=== PATIENT | male | born 1990 | race Caucasian/White ===

== ENCOUNTER 2024-04-10 14:34 | Outpatient (OUT) | payer OTHER, SELFPAY | END 2024-04-10 14:35 | disposition home or self-care (01) | LOC: PST 14:35 | PROVIDERS: Family Provider Family Medicine; Visit Provider Surgery | DX: Z01.818 Encounter for other preprocedural examination (principal); K21.9 Gastro-esophageal reflux disease without esophagitis ==

== ENCOUNTER 2024-04-18 08:20 | Day surgery (SDC) | payer OTHER, SELFPAY ==
--- NOTE | 2024-04-18 | OP_ITS ---
OPERATION DATE: 04/18/2024 PREOPERATIVE DIAGNOSIS: Gastroesophageal reflux disease, globus sensation. POSTOPERATIVE DIAGNOSIS: Mild antral gastritis. PROCEDURE: EGD with antral biopsy. SURGEON: Trell Aragon M.D. ANESTHESIA: Monitored anesthesia care. ESTIMATED BLOOD LOSS: Less than 1 mL. INDICATIONS AND CONSENT: Patient is a 33-year-old male with history of refractory gastroesophageal reflux disease, despite proton pump inhibitor. Primary symptom is a globus sensation. Indications, risks, benefits, alternatives of proceeding with EGD under anesthesia were explained extensively to the patient, including the risks of bleeding, aspiration, esophageal/gastric/duodenal perforation or anesthetic complications. All of his questions were answered. Informed consent was obtained. PROCEDURE: Patient brought to the operating room, placed in the left lateral decubitus position. Monitored anesthesia care was provided. Bite block was placed in the patient?s mouth. Scope was inserted into the oropharynx. Under direct visualization, it was advanced into the esophagus, past the cricopharyngeus, down to the stomach. The stomach was insufflated with air. The pylorus was traversed down to the descending portion of the duodenum. There was no evidence of duodenitis or ulceration. There was no scarring within the pyloric channel. Scope was pulled back into the stomach and retroflexed. There was no hiatal hernia. There was some mild antral gastritis without ulceration or bleeding. Biopsy was obtained with cold biopsy forceps with good hemostasis. The GE junction was noted at approximately 40 cm. There was no distal esophagitis or Maier?s changes. The remainder of the esophagus was unremarkable. The scope was then withdrawn. Patient tolerated procedure well, was sent to recovery room in good condition. CC: Shaun Lopez M.D. [facility]ITAL[facility]aged
--- OUTSIDE RECORDS SUMMARY | 2024-04-18 08:24 | XMS_ITS | CCD ---
Author Organization [facility] Care Team Providers Care Collet Making Machine Operator Name Role Phone REBEL CAZARES Attending Unavailable REBEL CAZARES Referring Unavailable Shaun Lopez Primary Care Physician [phone] Trell JARQUIN Attending Unavailable Shaun Lopez Referring Unavailable Allergies Allergy Classification Reported Allergen(s) Allergy Type Date of Onset Reaction(s) Facility (2 sources) Penicillin; Translations: [penicillin] Drug Allergy Eruption of skin (disorder) [facility] [place] Medications Current Medications Medication Drug Class(es) Dates Sig (Normalized) Sig (Original) pantoprazole 40 mg delayed release oral tablet (1 source) Proton Pump Inhibitor Start: 03-21-2024 take 1 tablet by mouth once daily Protonix 40 mg Tab-DR 40 mg = 1 tab(s), Oral, Daily, Refills(s) 0 Start Date: 03/21/24 Status: Ordered Problems Active Problems Problem Classification Problem Date Documented Date Episodic/Chronic Esophageal disorders (3 sources) Gastroesophageal reflux disease without esophagitis; Translations: [Gastro-esophageal reflux disease without esophagitis] Onset: 03-28-2024 Chronic Other circulatory disease (1 source) Feeling of lump in throat 03-28-2024 Episodic Other nutritional; endocrine; and metabolic disorders (1 source) Body mass index 30+ - obesity 03-28-2024 Chronic Other nutritional; endocrine; and metabolic disorders (1 source) Obesity caused by energy imbalance 03-21-2024 Chronic Past or Other Problems Problem Classification Problem Date Documented Da te Episodic/Chronic Unclassified (1 source) Foreign body sensation; Translations: [Foreign body sensation, throat] Onset: 03-28-2024 Results Test Name Value Interpretation Reference Range Facil ity Ambulatory Visit Summaryon 0 03-28-2024 Ambulatory Visit Summary Ambulatory Visit Summary KIRSTY MORTENSEN :1990 Visit Date:03/28/2024 Ambulatory Visit Instructions Your Care Team Attending Physician - Trell JARQUIN MD Primary Care Physician - Shaun Lopez MD Referring Physician - Shaun Lopez MD This Is Your Medications List Contact prescribing physician if questions or concerns pantoprazole (Protonix 40 mg Tab-DR) Procedures Performed None. Discharge Vitals Heart Rate (Peripheral) 72 Respiratory Rate 16 Blood Pressure 112/82 Height 167.64 cm Height 66 in Weight 88 kg Weight 194.007 lb BMI 31.31 Medications What How Much When Instructions Unchanged pantoprazole (Protonix 40 mg Tab-DR) 1 Tablets By Mouth Every day Contact prescribing physician if questions or concerns Allergies penicillin (Rash) Problems Ongoing - Any problem that you are currently receiving treatment for. BMI 31.0-31.9,adult GERD (gastroesophageal reflux disease) Obesity due to excess calories Patient Survey You may receive a survey via text or e-mail asking about your office visit. Please share your experience with us by completing your survey. We appreciate your feedback and thank you for choosing us for your care. Normal [facility] XR CHEST 2 VIEWSon XR CHEST 2 VIEWS EXAM: XR CHEST 2 VIE WS DATE:05/15/2023 11:50 AM CLINICAL HISTORY: cough. COMPARISON: None available. TECHNIQUE: Upright PA and lateral radiographs of the chest were obtained. FINDINGS: There is no significant pulmonary infiltrate, cardiomegaly, pleural effusion, vascular congestion, pneumothorax, or displaced fractures identified. IMPRESSION: NO EVIDENCE OF ACTIVE CARDIOPULMONARY DISEASE. ELECTRONICALLY SIGNED BY: Paulo Callaway MD Normal Not Available Vital Signs Date Time Vital Sign Value Performing Clinician Marily elizabeth 03-28-2024 14:18-0500 Blood Pressure Location Trell JARQUIN [facility] [place] 03-28-2024 14:18-0500 Diastolic blood pressure 82 mm[Hg] Trell JARQUIN [facility] [place] 03-28-2024 14:18-0500 Heart rate 72 /min Trell JARQUIN [facility] [place] 03-28-2024 14:18-0500 Respiratory rate 16 /min Trell NILL [facility] [place] 03-28-2024 14:18-0500 Systolic blood pressure 112 mm[Hg] Trell NILL [facility] Encounters Encounter Date Encounter Type Care Provider Facility Start: 03-28-2024 End: 03-28-2024 ambulatory Trell R NILL Facility:[facility] Start: 03-28-2024 End: 03-28-2024 Patient encounter procedure Trell Arndt NILL [facility] Start: 03-19-2024 ambulatory Trell NILL Facility:[facility] [place] Start: 05-15-2023 End: 05-16-2023 ambulatory REBEL CAZARES Not Available Procedures Date Procedure Procedure Detail Performing Clinician None (qualifier value) Mauricio DUVALL Immunizations Immunization Date Immunization Notes Care Provider Fa cility 03-20-2021 SARS-CoV-2 (COVID-19 ) mRNA BNT-162b2 vax Trell NILL [facility] 07-09-2020 SARS-CoV-2 (COVID-19 ) mRNA BNT-162b2 vax Trell NILL [facility] Comment on above: Result Comment: 2024: [facility] 06-18-2020 SARS-CoV-2 (COVID-19 ) mRNA BNT-162b2 vax Trell NILL [facility] Comment on above: Result Comment: 2024: [facility] Payers Date Payer Category Payer Unknown [id number] 2023 Unknown [id number] 1990 Unknown [id number] 1990 Unknown [id number] 1990 Unknown [id number] Social History Date Type Detail Facility Start: 03-28-2024 Tobacco smoking status Never s moked tobacco (finding) [facility] [place] Tobacco smoking status Never Dominic[facility] [place] Sex Assigned At Male [facility] Functional Status Date Assessment Result Facility 03-28-2024 Functional Status N/A [facility] [place] Clinical Note 03-28-2024 Note Date & Type Note Facility 03-28-2024 Note General Surgery Offi ce/Clinic Note Chief Complaint consultation for GERD HPI Staff 33 year old male presents on consultation from Dr. Lopez for possible GERD. Patient reports feeling of sensation of food being stuck in throat. He has been experiencing this intermittently since February. Sensation is not related to eating. He denies swallowing issues or choking on food. Denies sour taste in mouth or indigestion. No nausea or vomiting. Taking Protonix 40mg daily since February. He does not feel this has significantly changed this sensation but has improved heartburn. Never had EGD in the past. History of Present Illness 33 yo male with 1 year h/o GERD symptoms, worsening over last 6 weeks; placed on Protonix last month with improvement in some symptoms, primarily burning epigastric pain radiating into chest; has noted increased globus sensation; no dysphagia or early satiety, no odynophagia; no asa use, occasional NSAID use; no tobacco use; no abd operations or previous endoscopy; no fmhx of GI malignancy or IBD. Review of Systems PHQ Score Initial Depression Screen Score: 0 SCORE ROS - Provider Constitutional: no fever, no sweats, no weight loss. Eyes: no glasses, no blurred vision, no visual loss. ENMT: no dentures, no hoarseness, no swallowing difficulties, no hearing loss, no ear infection(s), no nose bleeds. Cardiovascular: normal blood pressure, no chest pain, regular heartbeat, no heart murmur. Respiratory: no shortness of breath, no cough, no asthma, no wheezing. Gastrointestinal: no nausea, no vomiting, no diarrhea, no constipation, no blood in stool, no change in bowel habits, no abdominal pain, no hepatitis. Genitourinary: no kidney stones, no urine infection, no dysuria. Musculoskeletal: no pain, no weakness. Skin: no changing moles, no rash, no skin lumps. Neurologic: no seizures, no epilepsy, no headache. Psychiatric: no emotional or psychiatric problem. Heme/Lymph: no bleeding problems, no anemia, no blood clots, no transfusions. Allergy/Immunologic: no swollen lymph nodes/glands, no IV drug abuse. Other: Additional ROS info: Except as noted in the above Review of Systems and in the History of Present Illness, all other systems have been reviewed and are negative or noncontributory. Physical Exam Vitals & Measurements HR: 72(Peripheral) RR: 16 BP: 112/82 HT: 66 in HT: 167.64 cm WT: 88 kg WT: 194.007 lb BMI: 31.31 HEENT: normal conjunctiva, sclera clear, no scleral icterus, EOM intact, PERRLA, oral mucosa moist without lesions. Neck: trachea midline, no mass, symmetric, no thyromegaly or nodules, no adenopathy Respiratory: lungs CTA, respirations non labored. Cardiovascular: regular rate and rhythm, no murmur, no pedal edema or varicosities. Gastrointestinal: soft, non distended, no tenderness, no masses, no palpable hernias, diastasis recti no, no hepatosplenomegaly; normal bs Lymphatic: no cervical adenopathy, no supraclavicular adenopathy. Musculoskeletal: normal gait, digits and nails without infection, nodes, cyanosis, clubbing. Skin: no rashes, no lesions, no ulcers, no subcutaneous nodules, induration. Psychiatric/Neuro: oriented to time, place, person, judgement normal, affect appropriate for age, insight intact, no focal deficits. Tests: , review of old records completed , Discussed surgical options, risks, and possible complications with patient. Assessment/Plan 1. Chronic GERD (K21.9: Gastro-esophageal reflux disease without esophagitis) plan EGD under anesthesia for further evaluation, informed consent obtained. 2. Globus sensation (R09.A2: Foreign body sensation, throat) see # 1 Follow-up No qualifying data available Problem List/Past Medical History Ongoing BMI 31.0-31.9,adult Chronic GERD GERD (gastroesophageal reflux disease) Globus sensation Obesity due to excess calories Historical No qualifying data Procedure/Surgical History None. Medications Protonix 40 mg Tab-DR, 40 mg= 1 tab(s), Oral, Daily Allergies penicillin (Rash) Social History Alcohol Never., 03/28/2024 Substance Abuse Never., 03/28/2024 Tobacco Never (less than 100 in lifetime) Tobacco Use:. Never Smokeless Tobacco Use:., 03/28/2024 Family History Heart disease: Father. Immunizations Vaccine Date Status Comments SARS-CoV-2 (COVID-19) mRNA BNT-162b2 vax 03/20/2021 Recorded SARS-CoV-2 (COVID-19) mRNA BNT-162b2 vax 07/09/2020 Recorded 2024-03-19: [facility] SARS-CoV-2 (COVID-19) mRNA BNT-162b2 vax 06/18/2020 Recorded 2024-03-19: [facility] Comment on above: Result Comment: Elec tronically Signed By: MILKA NASH, Trell Epperson\Date and Time Signed: 03/28/24 14:54 EST Evaluation + Plan note Note Date & Type Note Facility Evaluation + Plan note No data available for this section [facility] [place] [facility] Discharge instructions Note Date & Type Note Facility Hospital Discharge instructions No data available for this section [facility] Progress note Note Date & Type Note Facility Progress note No data available for this section [facility] [place] Summary Purpose Family History No Family History Records Found No data available for this section No Family History Records Found Advance Directives No Advanced Directives Records FoundNo Advanced Directives Records Found Additional Source Comments (unrecognized sect ion and content) No Status Records FoundNo Status Records Found INFORMATION SOURCE (unrecogn ized section and content) DATE CREATED AUTHOR 05/20/2023 [facility] EPIC DATE CREATED AUTHOR AUTHOR'S ORGANIZ ATION 03/30/2024 [facility] Patient Care team informatio n (unrecognized section and content) Personnel Name: Shaun Lopez MD Address: Address: [address] [place] [address] FOR RECORDS PERTAINING TO PATIENTS WHO ARE OR HAVE BEEN ENROLLED IN A CHEMICAL DEPENDENCY/SUBSTANCEABUSE PROGRAM, SOME INFORMATION MAY BE OMITTED. This clinical summary was aggregated from multiple sources. Caution should be exercised in using it in the provision of clinical care. This summary normalizes information from multiple sources, and as a consequence, information in this document may materially change the coding, format and clinical context of patient data. In addition, data may be omitted in some cases. CLINICAL DECISIONS SHOULD BE BASED ON THE PRIMARY CLINICAL RECORDS. [facility] [employer] [facility]. provides no warranty or guarantee of the accuracy or completeness of information in this document.
[2024-04-18 08:37] VITALS: BP 132/86; PULSE 89; TEMP 36.5; O2SAT 100; BMI 31.2
[2024-04-18] MEDS: 0.9 % SODIUM CHLORIDE 500 ML 50 ML IV (08:49)
[2024-04-18 10:49] VITALS: BP 110/59; PULSE 80; TEMP 36.4; O2SAT 94
[2024-04-18 11:04] VITALS: BP 116/81; PULSE 76; O2SAT 98
[2024-04-18 11:19] VITALS: BP 124/82; PULSE 72; O2SAT 98
== END 2024-04-18 11:19 | disposition home or self-care (01) ==
PROVIDERS: Family Provider Family Medicine; PCP Family Medicine; Visit Provider Surgery
PROC: (CPT 731; principal; 2024-04-18 09:35)
DX: K21.9 Gastro-esophageal reflux disease without esophagitis (principal); R09.A2 Foreign body sensation, throat; K29.50 Unspecified chronic gastritis without bleeding; B96.81 Helicobacter pylori [H. pylori] as the cause of diseases classified elsewhere
CPT/HCPCS: 43239; 88305; 88342; J2704

== ENCOUNTER 2024-08-04 17:15 | Emergency (ER) | payer OTHER, SELFPAY ==
--- OUTSIDE RECORDS SUMMARY | 2024-02-24 07:15 | XMS_ITS ---
Author Organization [facility] in [place] Address [address] [place] [address] Care Team Providers Care Paint Specialist Name Role Phone WilianjayashreeMode Primary Care Provider Allergies Allergen (clinical drug ingredient) Drug/Non Drug Allergy documented on EMR Reaction Allergy Type Onset Date Status amoxicillin Amoxicillin rash Drug Allergy Act naveen REASON FOR VISIT Presents to office alone for c/o acid reflux Medications Medication SIG (Take, Route, Fr equency, Duration) Notes Start Date End Date Status Protonix 40 MG 1 tablet Orally Once a day for 30 days 02/24/2024 Active Social History Tobacco Use: Social History Observation Description Date Details (start date - stop date) Never Smoker NA - NA Tobacco Control (Standard) Question Answer Notes Tobacco use: Nonsmoker AUDIT-C (Standard) Question Answer Notes Did you have a drink containing alcohol in the p ast year? No Points 0 Interpretation Negative Problems Problem Type SNOMED Code ICD Code Onset Dates Problem Status W/U Status Risk Notes Problem Gastroesophageal reflux disease (131543950) GERD (gastroeso phageal reflux disease) (K21.9) Active confirmed Vital Signs Blood pressure systolic 102 mm Hg 02/24/20 24 Blood pressure diastolic 64 mm Hg 024 Height 66 in 02/24/2024 Weight 192.2 lbs 02/24/2024 BMI 31.02 kg/m2 02/24/2024 Encounters Encounter Location Date Provider Diagnosis [facility] [address] [place] [address] 02/24/2024 Mode Lopez GERD (gastroesophage al reflux disease) K21.9 Assessments Encounter Date Diagnosis (ICD Code) Assessment Notes Treatment Notes Treatment Clinical Notes Section Notes 02/24/2024 GERD (gastroesophage al reflux disease) (ICD-10 - K21.9) Plan Of Treatment Medication Medication Name Sig Start Date Stop Date Notes Protonix 40 MG 1 tablet Orally Once a day for 30 days 02/05 Progress Notes * Jared MORTENSEN ADOB: [birth year] (33 yo M)Acc No.[id number]:02/24/2024 Progress Note Patient: Jared DIAZ A Provider: Maged Lopez ([facility])MD :1990 A ge:33 Y S ex:Male Date:02/24/2024 Address:[address] [place], [place] [id number] Check In:10:54 AM ESTCheck O ut:11:44 AM EST Subjective: * Chief Complaints: * P resents to office alone for c/o acid reflux * HPI: G eneral: Past Testing: s. GERD symptoismn - feels like occ thing getting stuck in throat. D epression Screening: PHQ-2 (2015 Edition) L ittle interest or pleasure in doing things??Not at all F eeling down, depressed, or hopeless? N ot at all T otal Score 0 * ROS: E ENT: hearing changes d enies. v isual changes d enies.?non-healing mouth sores d enies. s wollen glands or neck lumps d enies. h oarseness d enies. s ore throat d enies. d ifficulty swallowing d enies. n ose bleeds d enies. n barry congestion d enies. e ar ache d enies. e ar discharge?denies. r inging in ears d enies. l ight sensitivity d enies. e ye pain d enies. b lurring d enies. e ye irritation d enies. d ouble vision d enies.?vision loss d enies. G eneral/Constitutional: Sweats: D enies. F atigue d enies. S leep problems d enies. A norexia d enies. M alaise d enies. W eight loss d enies.?Fatigue or Weakness d enies. F ever or Chills d enies. C ardiovascular: Shortness of Breath w/lying flat d enies. L ightheadedness/dizziness d enies. C hest tightness/ heavy pressure d enies. S welling of legs, ankles, or feet d enies. W aking up with shortness of breath d enies. C hest pain denies. P alpitations d enies. W eight gain d enies. R espiratory: Chronic or frequent cough d enies. C oughing up blood?denies. D ifficulty breathing d enies. P roductive cough d enies. S noring?denies. S hortness of breath that awakens from sleep (PND) d enies. C hest pain d enies. S putum production d enies. W heezing d enies. M usculoskeletal: Joint pain d enies. J oint Fluid d enies. B ack pain d enies. K nee pain d enies. N chidi pain d enies. J oint Stiffness d enies. M uscle cramps d enies. W eakness of muscles d enies. A rthritis d enies. M uscle aches d enies. P ain in shoulder(s) d enies. S wollen joints d enies. * Active Problem List K21.9 GERD (gastroesophage al reflux disease) Modified On:02/24/2024W/U Status:confirmed * Medical History: * Surgical History: d enies * Hospitalization/Major Diagno stic Procedure: d enies * Family History: F ather: alive, open heart surgery, pace maker, diagnosed with Unspecified heart disease. M other: alive. B rother(s): alive. S ister(s): alive. 1 brother(s) , 1 sister(s) - healthy. . * Social History: T obacco Use: T obacco Control (Standard) T obacco use: N onsmoker D rug/Alcohol: A JOHN-C (Standard) D id you have a drink containing alcohol in the past year? N o P oints 0 I nterpretation N egative * Medications: N one * Allergies: A moxicillin: jarvis[Allergies Verified] Objective: * Vitals: W t:192.2lbs, Ht: 66 in, BP:102/64mm Hg, BMI:31.02Index, Ht-cm: 167.64 cm, Wt-k.18 kg. * Examination: P hysical Exam: GENERAL: w ell developed, well nourished, in no acute distress. HEAD: n ormocephalic/atraumatic. EYES: p upils equal, round and reactive to light, conjunctivae and sclerae normal. EARS: n o deformity or lesion of external ear, canals and TM appear normal bilaterally, TM's intact, not inflamed with normal light reflex, hearing grossly normal to conversational speech. NOSE: n o deformity, discharge, inflammation, or lesions.? MOUTH: m ucous membranes moist, normal oropharynx and posterior pharynx without lesions or exudates, tongue normal, dentition normal. NECK: n chidi supple, no masses or palpable cervical nodes, trachea midline, thyroid without nodules, masses, tenderness, or enlargement. CHEST: n o chest wall deformity, no chest wall tenderness.? LUNGS: n ormal respiratory effort and clear to auscultation, no wheezes, rales, or rhonchi, good air exchange. CARDIO: r egular rate and rhythm, normal S1 and S2, nor murmur, rub, or gallop. PULSES: n ormal capillary refill. ABDOMEN: s oft, non-distended, non-tender, no masses. MUSCULOSKELETAL: n o deformity or scoliosis noted, normal range of motion, joints normal, no erythema, edema, effusion, or ecchymosis. EXTREMITY: n o clubbing, cyanosis, edema, or deformity with normal ROM in both upper and lower bilateral extremities. NEUROLOGIC: g rossly normal. SKIN: n o rashes, ulcerations, or suspicious lesions. LYMPH NODES: n o cervical adenopathy, nodes normal. MENTAL STATUS: a lert and oriented x3, normal mood and affect. Assessment: * Assessment: 1. G ERD (gastroesophageal reflux disease) - K21.9 (Primary) Plan: * Treatment: * Procedure Codes: * Preventive Medicine: Screenings/Counseling: B [place] ACTION PLAN Above Normal BMI Follow-up D ietary management education, guidance, and counseling See treatment section of progress note for complete details of management plan. * * Sign off status: Completed Visit Status: C HK (Check Out) true * Provider: Maged Lopez ([facility])MD Date: 1 04/26/2023 Generated for Printi ng/Fakristoferg/eTransmitting on: 0 08/04/2024 05:20 PM EDT History and Physical Notes * HPI (History of Present Illness) Category Sub-Category Detail Notes Category Not es General Past Testing: s GERD symptoism n - feels like occ thing getting stuck in throat Depression Screening PHQ-2 (2015 Edition) Little interest or pleasure in doing things?: Not at all Feeling down, depressed, or hopeless?: N ot at all Total Score: 0 Examination Category Sub-Category Detail Notes Category Not es Physical Exam GENERAL: well developed, well nourished, in no acute distress HEAD: normocephalic/atraum atic EYES: pupils equal, round and reactive to light, conjunctivae and sclerae normal EARS: no deformity or lesi on of external ear, canals and TM appear normal bilaterally, TM's intact, not inflamed with normal light reflex, hearing grossly normal to conversational speech NOSE: no deformity, discha rge, inflammation, or lesions MOUTH: mucous membranes [address] st, normal oropharynx and posterior pharynx without lesions or exudates, tongue normal, dentition normal NECK: neck supple, no mass es or palpable cervical nodes, trachea midline, thyroid without nodules, masses, tenderness, or enlargement CHEST: no chest wall deform ity, no chest wall tenderness LUNGS: normal respiratory e ffort and clear to auscultation, no wheezes, rales, or rhonchi, good air exchange CARDIO: regular rate and rhy thm, normal S1 and S2, nor murmur, rub, or gallop PULSES: normal capillary ref ill ABDOMEN: soft, non-distended, non-tender, no masses RECTAL: MUSCULOSKELETAL: no deformity or scol iosis noted, normal range of motion, joints normal, no erythema, edema, effusion, or ecchymosis EXTREMITY: no clubbing, cyanosi s, edema, or deformity with normal ROM in both upper and lower bilateral extremities NEUROLOGIC: grossly normal SKIN: no rashes, ulceratio ns, or suspicious lesions LYMPH NODES: no cervical adenopat hy, nodes normal MENTAL STATUS: alert and oriented x 3, normal mood and affect
--- OUTSIDE RECORDS SUMMARY | 2024-03-16 07:00 | XMS_ITS ---
Author Organization [facility] in [place] Address [address] [place] [address] Care Team Providers Care Printing Machine Operator Tape Rules Name Role Phone John Mode Primary Care Provider Allergies Allergen (clinical drug ingredient) Drug/Non Drug Allergy documented on EMR Reaction Allergy Type Onset Date Status amoxicillin Amoxicillin rash Drug Allergy Act naveen Reason For Referral Diagnosis 1 GERD (gastroesophage al reflux disease) (K21.9) Referral Organization [facility] Medicine Referring Provider First Name [...] 03/16/2024 Encounters Encounter Location Date Provider Diagnosis [facility] [address] [facility] [place] [address] 03/16/2024 Mode Lopez GERD (gastroesophage al reflux disease) K21.9 Assessments Encounter Date Diagnosis (ICD Code) Assessment Notes Treatment Notes Treatment Clinical Notes Section Notes 03/16/2024 GERD (gastroesophage al reflux disease) (ICD-10 - K21.9) Plan Of Treatment Pending Test Test Name Order Date XR Upper GI w/ Esophogram 03/16/2024 Referrals Referral Date Details 03/16/2024 03/16/2024, Terll Aragon Progress Notes * Jared MORTENSEN ADOB: [birth year] (33 yo M)Acc No.[id number]:03/16/2024 Progress Note Patient: Jared DIAZ Provider: Maged Lopez ([facility]), :1990 A ge:33 Y S ex:Male Date:03/16/2024 Address:[address] [place] [address] [id number] Check In:10:52 AM ESTCheck O ut:11:42 AM [...] Procedure Codes: * Preventive Medicine: Screenings/Counseling: B [place] ACTION PLAN Above Normal BMI Follow-up D ietary management education, guidance, and counseling See treatment section of progress note for complete details of management plan. * * Sign off status: Completed Visit Status: C HK (Check Out) true * Provider: Maged Lopez ([facility])MD Date: 0 03/16/2024 Generated for Teenai charly/Janet/eTransmitting on: 0 08/04/2024 05:21 PM EDT History and Physical Notes * [...]
--- OUTSIDE RECORDS SUMMARY | 2024-08-03 10:00 | XMS_ITS ---
Author Organization [facility] in [place] Address [address] [place] [address] Care Team Providers Care Field Irrigation Worker Name Role Phone Mode Lopez Primary Care Provider [phone] Allergies Allergen (clinical drug ingredient) Drug/Non Drug Allergy documented on EMR Reaction Allergy Type Onset Date Status amoxicillin Amoxicillin rash Drug Allergy Act naveen REASON FOR VISIT patient is co flu symptoms, sweating, chills, congestion, diarrhea, started tuesday, returned from vacation tuesday from [facility] Medications Medication SIG (Take, Route, Frequency, Duration) Notes Start Date End Date Status Protonix 40 MG 1 tablet Orally Once a day for 30 days 02/24/2024 Active tiZANidine HCl 4 MG 1 table Orally tid p rn heaache for 10 days 08/03/2024 Active Diclofenac Sodium 75 MG 1 tablet as need ed Orally Twice a day for 30 days 08/03/2024 Active Ciprofloxacin HCl 500 MG 1 tablet Orally every 12 hrs for 10 days 08/03/2024 Active Social History Tobacco Use: Social History [...] Problem Status W/U Status Risk Notes Problem Migraine (46045035) Migraine (G43.909) Active confirmed Vital Signs Temperature 99.2 degrees Fahrenheit 08/04/19 25 Blood pressure systolic 102 mm Hg 08/04/19 25 Blood pressure diastolic 68 mm Hg 025 Height 66 in 08/03/2024 Weight 184.8 lbs 08/03/2024 BMI 29.82 kg/m2 08/03/2024 Encounters Encounter Location Date Provider Diagnosis [facility] [address] [place] [address] 08/03/2024 Mode Lopez Migraine G43.909 Assessments Encounter Date Diagnosis (ICD Code) Assessment Notes Treatment Notes Treatment Clinical Notes Section Notes 08/03/2024 Migraine (ICD-10 - G43.909) Plan Of Treatment Medication Medication Name Sig Start Date Stop Date Notes tiZANidine HCl 4 MG 1 table Orally tid p rn trish for 10 days 08/03/2024 Diclofenac Sodium 75 MG 1 tablet as need ed Orally Twice a day for 30 days 08/03/2024 Ciprofloxacin HCl 500 MG 1 tablet Orally every 12 hrs for 10 days 08/03/2024 Medications Administered Medication Instructions Date of Administration Dosage Notes Ketorolac Tromethamine 08/03/2024 60 mg Orphenadrine Citrate 08/03/2024 60 mg Progress Notes * BALBINAJared ISABEL ADOB: 9[birth year] (33 yo M)Acc No.[id number]:08/03/2024 UNLOCKED PROGRESS NOTE Progress Note Patient: Jared DIAZ Provider: Maged Lopez ([facility])MD :1990 A ge:33 Y S ex:Male Date:08/03/2024 Address:[address] [place], [place] [id number] Check In:01:47 PM ESTCheck O ut:03:02 PM EST Subjective: * Chief Complaints: * 1 . Patient is co flu symptoms, sweating, chills, congestion, diarrhea, started tuesday. 2. Returned from vacation tuesday from [facility]. * HPI: G eneral: no fever maybe feverish - chills headache diarrhea - body aches had diarrehea - that part better - no blood at the time no JACKSON - no cough - no rhnorhea no [facility] R hinduism headache - pain over emple mostly now is the headache. * ROS: E ENT: hearing changes d [...] enies. S wollen joints d enies. * Medical History: M edical History Verified. * Surgical History: E GD Dr Aragon 04/18/24. * Hospitalization/Major Diagno stic Procedure: d enies . * Family History: F ather: alive, open [...] I nterpretation N egative * Medications: T aking Protonix(Pantoprazole Sodium) 40 MG Tablet Delayed Release 1 tablet Orally Once a day , Medication List reviewed and reconciled with the patient * Allergies: A moxicillin: rash. Objective: * Vitals: W t:184.8lbs, Ht: 66 in, BP:102/68mm Hg, Temp:99.2F, BMI:29.82Index, Ht-cm: 167.64 cm, Wt-k.82 kg. * Examination: P hysical Exam: GENERAL: [...] mood and affect. Assessment: * Assessment: 1. M [facility] - G43.909 (Primary) Plan: * Treatment: * Therapeutic Injections: Ketorolac Tromethamine : 60 mg (Route: Intramuscular) given by ADOLFO Galo on right deltoid (Migraine) Orphenadrine Citrate : 60 mg (Route: Intramuscular) given by ADOLFO Galo on left deltoid (Migraine) * Procedure Codes: J 1885 TORADOL, PER 15 MG, 22062 THERAP.INJ. OF MED. INTRAMUSCULAR OR SUBCUTANEOUS, J2360 NORFLEX,UP TO 60MG. * Preventive Medicine: Screenings/Counseling: B SC ACTION PLAN Above Normal BMI Follow-up D ietary management education, guidance, and counseling * * Electronic signature of Mode Lopez MD, [id number] on 08/04/2024 at 05:20 PM EDT Sign off status: Pending Visit Status: C HK (Check Out) * Provider: Maged Lopez ([facility])MD Date: 08/03/2024 Generated for Teenai charly/Janet/eTransmitting on: 08/04/2024 05:20 PM EDT History and Physical Notes * HPI (History of Present Illness) Category Sub-Category Detail Notes Category Not es General no fever maybe feverish - chills headache diarrhea - body aches had diarrehea - that part better - no blood at the time no JACKSON - no cough - no rhnorhea no ST R hinduism headache - pain over emple mostly now is the headache Examination Category Sub-Category Detail Notes Category Not [...]
[2024-08-04] VITALS (12 sets, daily range): BP systolic 103–111; BP diastolic 72–78; PULSE 80–112; TEMP 36.6–39.6; O2SAT 93–99; BMI 29.9
--- OUTSIDE RECORDS SUMMARY | 2024-08-04 17:21 | XMS_ITS | Clinical Summary ---
Author Organization [facility] Address [address] [place] [address] Care Team Providers Care Grease And Tallow Pumper Name Role Phone Unavailable Primary Care Provider Unavailabl e Allergies Active Allergy Reactions Criticality Noted Date Comments Amoxicillin Rash Low 05/15/2023 Medications omeprazole (PriLOSEC) [address] Caicedo ns:Gastroesophag eal reflux disease with esophagitis, unspecified whether hemorrhage Take 1 capsule (40 mg) by mouth in the morning. Take before meals. Do not crush or chew.. 30 capsule 1 05/15/2023 Active Social History Tobacco Use Types Packs/Day Years Used Date Smoking Tobacco: Unknown Tobacco Cessation:Counseling Given: Not Answered Sex and Gender Information Value Date Recorded Sex Assigned at Not on file Legal Sex Male 7:04 PM EDT Gender Identity Not on file Sexual Orientation Not on file Last Filed Vital Signs Vital Sign Reading Time Taken Comments Blood Pressure 130/82 05/15/2023 11:32 AM EDT Pulse 66 05/15/2023 11:32 AM EDT Temperature 36.7 C (98 F) 05/15/2023 11:32 AM EDT Respiratory Rate - - Oxygen Saturation 99% 05/15/2023 11:32 AM EDT Inhaled Oxygen Concentration - - Weight 88.5 kg (195 lb) 05/15/2023 11:32 AM EDT Height - - Body Mass Index - - Plan of Treatment Not on file Insurance [facility] [place] [id number]
--- OUTSIDE RECORDS SUMMARY | 2024-08-04 17:21 | XMS_ITS | CCD ---
Author Organization [facility] Care Team Providers Care Direct Marketing Coordinator Name Role Phone REBEL CAZARES Attending Unavailable REBEL CAZARES Referring Unavailable Shaun Lopez Primary Care Physician [phone] Trell JARQUIN Attending Unavailable Shaun Lopez Referring Unavailable Trell JARQUIN Attending Unavailable NILLTrell Admitting Unavailable NILLTrell Attending Unavailable NILL, Trell Arndt Attending Unavailable NILL, Trell Arndt Attending Unavailable Allergies Allergy Classification Reported Allergen(s) Allergy Type Date of Onset Reaction(s) Facility (4 sources) Penicillin; Translations: [penicillin] Drug Allergy Eruption of skin (disorder) [facility] [place] Medications Current Medications Medication Drug Class(es) Dates Sig (Normalized) Sig (Original) pantoprazole 40 mg delayed release oral tablet (2 sources) Proton Pump Inhibitor Start: 04-20-2024 End: 06-15-2024 take 1 tablet by mouth twice daily Protonix 40 mg Tab-DR 40 mg = 1 tab(s), Oral, BID, X 14 day(s), # 28 tab(s), Refills(s) 3, Pharmacy: [facility]/pharmacy #[id number], 167.6, cm, 03/28/24 14:21:00 EST, Height/Length Dosing, 88, kg, 03/28/24 14:21:00 EST, Weight Dosing Start Date: 04/20/24 Stop Date: 06/15/24 Status: Ordered Start: 03-21-2024 take 1 tablet by mague th once daily Protonix 40 mg Tab-DR 40 mg = 1 tab(s), Oral, Daily, Refills(s) 0 Start Date: 03/21/24 Status: Ordered Problems Active Problems Problem Classification Problem Date Documented Date Episodic/Chronic Bacterial infection; unspecified site (1 source) Helicobacter-associate d disease; Translations: [Helicobacter pylori [H. pylori] as the cause of diseases classified elsewhere] Onset: 05-02-2024 Episodic Esophageal disorders (8 sources) Gastroesophageal reflux disease without esophagitis; Translations: [Gastro-esophageal reflux disease without esophagitis] Onset: 03-28-2024 Chronic Gastritis and duodenitis (3 sources) Gastritis; Translations: [Gastritis, unspecified, without bleeding] Onset: 05-02-2024 Episodic Other circulatory disease (3 sources) Feeling of lump in throat 03-28-2024 Episodic Other nutritional; endocrine; and metabolic disorders (3 sources) Body mass index 30+ - obesity 03-28-2024 Chronic Other nutritional; endocrine; and metabolic disorders (3 sources) Obesity caused by energy imbalance 03-21-2024 Chronic Past or Other Problems Problem Classification Problem Date Documented Da te Episodic/Chronic Unclassified (2 sources) Foreign body sensation; Translations: [Foreign body sensation, throat] Onset: 03-28-2024 Results Test Name Value Interpretation Reference Range Facility H. pylori Breath [facility] 06-05 CO2 post dose urea Ql (Exhl gas) Negative Invalid Interpretation Code Negative [facility] Comment on above: Result Comment: Performed at: [facility] [address] [id number] PhD Nilsa Kerr Performed By: #### 1 [id number] #### [facility] [address] [place] [address] Ambulatory Visit Summaryon 0 05-02-2024 Ambulatory Visit Summary Ambulatory Visit Summary KIRSTY MORTENSEN Dominic :1990 Visit Date:05/02/2024 Ambulatory Visit Instructions Your Diagnosis GERD (gastroesophageal reflux disease) Globus sensation Helicobacter positive gastritis Helicobacter pylori [H. pylori] as the cause of diseases classified elsewhere Your Care Team Attending Physician - MILKA NASH, Trell Arndt Primary Care Physician - Shaun Lopez MD This Is Your Medications List Contact prescribing physician if questions or concerns pantoprazole (Protonix 40 mg Tab-DR) Procedures Performed EGD - esophagogastroduodenoscopy (04/18/2024). What to do next Scheduled Follow-Up Appointments Tuesday 8:00 AM EDT Where: [facility] [address] [place] [address] [address] [place] [address]- Medications What How Much When Why Instructions Unchanged pantoprazole (Protonix 40 mg Tab-DR) 1 Tablets By Mouth 2 times a day Helicobacter positive gastritis Duration: 14 Days Contact prescribing physician if questions or concerns Allergies penicillin (Rash) Problems Ongoing - Any problem that you are currently receiving treatment for. BMI 31.0-31.9,adult Chronic GERD GERD (gastroesophageal reflux disease) Globus sensation Helicobacter positive gastritis Obesity due to excess calories Patient Survey You may receive a survey via text or e-mail asking about your office visit. Please share your experience with us by completing your survey. We appreciate your feedback and thank you for choosing us for your care. Merle Chou [facility] General Surgery Office/Clini c Noteon 05-02-2024 General Surgery Office/Clinic Note General Surgery Office/Clinic Note Chief Complaint post operative follow up HPI Staff 14 day post operative follow up post EGD with antral biopsy. Biopsy with chronic inactive gastritis and positive h.pylori, quadruple therapy started on 04/20. Patient abruptly discontinued treatment after 6 days due to side effects of abdominal pain, excessive gas, bloating and globus sensation. History of Present Illness s/p EGD for GERD/globus sensation; found mild antral gastritis, antral bx with evidence of H pylori; patient treated with quadruple therapy; discontinued after 6 days of therapy due to side effects, not taking PPI either; had increased bloating and nausea; dry heaves; worsening globus sensation. now symptoms gradually improving; eating yogurt daily. Review of Systems PHQ Score Initial Depression [...] been reviewed and are negative or noncontributory. Assessment/Plan 1. GERD (gastroesophageal reflux disease) (K21.9: Gastro-esophageal reflux disease without esophagitis) will check H pylori breath test in 6 weeks to determine if it was eradicated; will call patient with results; call sooner if problems/questions. Ordered: E&M of Est. Patient Low 20-29 Min 86762 Helicobacter pylori; breath test analysis for urease activity, non-radioactive isotope (eg, C-13) 8 2. Globus sensation (R09.A2: Foreign body sensation, throat) improving Ordered: E&M of Est. Patient Low 20-29 Min 10563 Helicobacter pylori; breath test analysis for urease activity, non-radioactive isotope (eg, C-13) 8 3. Helicobacter positive gastritis (K29.70: Gastritis, unspecified, without bleeding) see # 1 Ordered: E&M of Est. Patient Low 20-29 Min 95227 Helicobacter pylori; breath test analysis for urease activity, non-radioactive isotope (eg, C-13) 8 Helicobacter pylori [H. pylori] as the cause of diseases classified elsewhere (B96.81: Helicobacter pylori [H. pylori] as the cause of diseases classified elsewhere) Follow-up No qualifying data available Problem List/Past Medical History Ongoing BMI 31.0-31.9,adult Chronic GERD GERD (gastroesophageal reflux disease) Globus sensation Helicobacter positive gastritis Obesity due to excess calories Historical No qualifying data Procedure/Surgical History EGD - esophagogastroduodenoscopy (04/18/2024). Medications Protonix 40 mg Tab-DR, 40 mg= 1 tab(s), Oral, BID, 3 refills Allergies penicillin (Rash) Social History Alcohol Never., 03/28/2024 Substance Abuse Never., 03/28/2024 Tobacco Never (less than 100 in lifetime) Tobacco Use:. Never Smokeless Tobacco Use:., 05/02/2024 Family History Heart disease: Father. Immunizations Vaccine Date Status Comments SARS-CoV-2 (COVID-19) mRNA BNT-162b2 vax 03/20/2021 Recorded SARS-CoV-2 (COVID-19) mRNA BNT-162b2 vax 07/09/2020 Recorded 2024-03-19: [facility] SARS-CoV-2 (COVID-19) mRNA BNT-162b2 vax 06/18/2020 Recorded 2024-03-19: T[facility]AL [facility] Comment on above: Result Comment: Electronically Signed By : MILKA NASH, Trell Arndt\.br\Date and Time Signed: 05/02/24 15:13 EST Ambulatory Visit Summaryon 0 03-28-2024 Ambulatory Visit Summary Ambulatory Visit Summary KIRSTY MORTENSEN :1990 Visit Date:03/28/2024 Ambulatory Visit Instructions Your Care Team Attending Physician - MILKA NASH, Trell Arndt Primary Care Physician - Shaun Lopze MD Referring Physician - Shaun Lopez MD [...] you for choosing us for your care. [facility] XR CHEST 2 VIEWSon XR CHEST 2 VIEWS EXAM: XR CHEST 2 VIEWS DATE:05/15/2023 11:50 AM CLINICAL HISTORY: cough. COMPARISON: None available. TECHNIQUE: Upright PA and lateral radiographs of the chest were obtained. FINDINGS: There is no significant pulmonary infiltrate, cardiomegaly, pleural effusion, vascular congestion, pneumothorax, or displaced fractures identified. IMPRESSION: NO EVIDENCE OF ACTIVE CARDIOPULMONARY DISEASE. ELECTRONICALLY SIGNED BY: Paulo Callaway MD Normal Not Available Vital Signs Date Time Vital Sign Value Performing Clinician Toniai clara 03-28-2024 14:18-0500 Blood Pressure Location Trell NILL [facility] 03-28-2024 14:18-0500 Diastolic blood pressure 82 mm[Hg] Trell NILL [facility] 03-28-2024 14:18-0500 Heart rate 72 /min Trell NILL [facility] 03-28-2024 14:18-0500 Respiratory rate 16 /min Trell NILL [facility] 03-28-2024 14:18-0500 Systolic blood pressure 112 mm[Hg] Trell NILL [facility] Encounters Encounter Date Encounter Type Care Provider Facility Start: 06-18-2024 End: 06-18-2024 Lab Drop off Trell R NILL [facility] Start: 06-18-2024 End: 06-18-2024 ambulatory Trell R NILL Facility:[facility] Start: 05-02-2024 End: 05-02-2024 ambulatory Trell R NILL Facility:[facility] Start: 05-02-2024 End: 05-02-2024 Patient encounter procedure Trell R NILL [facility] Start: 04-18-2024 End: 04-18-2024 ambulatory Trell R NILL Facility:CD:[id number] Start: 03-28-2024 End: 03-28-2024 ambulatory Trell R NILL Facility:[facility] Start: 03-28-2024 End: 03-28-2024 Patient encounter procedure Trell JARQUIN [facility] Start: 03-19-2024 ambulatory Trell JARQUIN Facility:[facility] Start: 05-15-2023 End: 05-16-2023 ambulatory REBEL CAZARES Not Available Procedures Date Procedure Procedure Detail Performing Clinician Start: 04-18-2024 Esophagogastroduodenoscopy Trell DUVALL None (qualifier value) Mauricio JARQUIN Immunizations Immunization Date Immunization Notes Care Provider Fa cility 03-20-2021 SARS-CoV-2 (COVID-19 ) mRNA BNT-162b2 vax Trell NILL [facility] 07-09-2020 SARS-CoV-2 (COVID-19 ) mRNA BNT-162b2 vax Trell DUVALL [facility] Comment on above: Result Comment: 2024: [facility] 06-18-2020 SARS-CoV-2 (COVID-19 ) mRNA BNT-162b2 vax Trell DUVALL [facility] Comment on above: Result Comment: 2024: [facility] Payers Date Payer Category Payer Unknown [id number] 2024 Unknown [id number] 2023 Unknown [id number] 1990 Unknown [id number] 2.16.84 [id number] 1990 Unknown [id number] 2.16.84 [id number] 1990 Unknown [id number] 2.16.8 [id number] 1990 Unknown [id number] 2.16.8 [id number] 1990 Unknown [id number] 2.16.8 [id number] 1990 Unknown [id number] 2.16.8 [id number] 1990 Unknown [id number] 2.16.8 [id number] Social History Date Type Detail Facility Start: 03-28-2024 End: 05-02-2024 Tobacco smoking status Never smoked tobacco (finding) [facility] [place] Tobacco smoking status Never [facility] Sex Assigned At Male [facility] Sexual Orientation [facility] Start: 06-18-2009 Sex Male (finding) [facility] Functional Status Date Assessment Result Facility 05-02-2024 Functional Status N/A [facility] [place] 03-28-2024 Functional Status N/A [facility] [place] Evaluation + Plan note 06-18-2024 Note Date & Type Note Facility 06-18-2024 Evaluation + Plan note Diagnostic Tests PendingH. pylori Breath Test 06/18/24 [facility] Clinical Note 06-18-2024 Note Date & Type Note Facility 06-18-2024 Note Nurse Consultation N ote Assessment/Plan Patient tolerated h pylori breath test, he verified understanding of instructions. Medications No active medications Allergies penicillin (Rash) Immunizations Vaccine Date Status Comments SARS-CoV-2 (COVID-19) mRNA BNT-162b2 vax 03/20/2021 Recorded SARS-CoV-2 (COVID-19) mRNA BNT-162b2 vax 07/09/2020 Recorded 2024-03-19: [facility] SARS-CoV-2 (COVID-19) mRNA BNT-162b2 vax 06/18/2020 Recorded 2024-03-19: ALVA Chou [facility] Clinical Note 03-28-2024 Note Date & Type [...] mRNA BNT-162b2 vax 06/18/2020 Recorded 2024-03-19: TPVAL [facility] Comment on above: Result Comment: Elec tronically Signed By: MILKA NASH, Trell Epperson\Date and Time Signed: 03/28/24 14:54 EST Evaluation + Plan note Note Date & Type Note Facility Evaluation + Plan note No data available for this section [facility] [place] Evaluation + Plan note Note Date & Type Note Facility Evaluation + Plan note Future Appointments Appointment Date:06/18/2024 08:00:00 AM Scheduled Provider: Location:[facility] Appointment Type:[facility] Nurse Visit [facility] [place] [facility] Discharge instructions Note Date & Type Note Facility Hospital Discharge instructions No data available for this section [facility] [place] Progress note Note Date & Type Note Facility Progress note No data available for this section [facility] [place] Summary Purpose Family History No Family History Records Found No data available for this section No data available for this section No data available for this section No Family History Records FoundNo Family History Records Found Advance Directives No Advanced Directives Records FoundNo Advanced Directives Records FoundNo Advanced Directives Records Found Additional Source Comments (unrecognized sect ion and content) No Status Records FoundNo Status Records FoundNo Status Records Found INFORMATION SOURCE (unrecogn ized section and content) DATE CREATED AUTHOR 05/20/2023 [facility] DATE CREATED AUTHOR AUTHOR'S ORGANIZ ATION 06/20/2024 [facility] DATE CREATED AUTHOR AUTHOR'S ORGANIZ ATION 06/27/2024 [facility] Patient Care team informatio n (unrecognized section and content) Personnel Name: Shaun Lopez MD Address: Address: [address] [place], [place] [address], [place] [address] Personnel Name: John NASHShaun Address: Address: [address] [place] [address] [place] [id number] Personnel Name: John NASHShaun Address: [address] [place] [address] [place], [place] [address] [employer]: FOR RECORDS PERTAINING TO PATIENTS WHO ARE [...] BE BASED ON THE PRIMARY CLINICAL RECORDS. [employer] [facility]. provides no warranty or guarantee of the accuracy or completeness of information in this document.
--- NOTE | 2024-08-04 17:32 | CT_ITS ---
The [address] [address] Patient Name: KIRSTY MORTENSEN MRN: [id number] date: 1990 Sex: M Assigned Patient Location: ER Current Patient Location: ER Accession/Order Number: [id number] Exam Date: 08/04/2024 18:38 Report Date: 08/04/2024 18:44 At the request of: PRAVEEN LOUISE Procedure: CT abdomen pelvis w con CT Abdomen and Pelvis withcontrast TECHNIQUE: Axial imaging with 2-D reconstruction.100 cc of Omnipaque 300. The CT exam was performed using one or more the following dose reduction techniques: Automated exposure control, adjustment of the MA and/or Kv according to patient size, or use of the iterative reconstruction technique. COMPARISON: None History: Fever. Diarrhea. LIMITATIONS: None LOWER THORAX Unremarkable LIVER: Unremarkable GALLBLADDER: No gallbladder abnormality identified. BILE DUCTS: No dilatation SPLEEN: Unremarkable PANCREAS: Unremarkable ADRENAL GLANDS: Unremarkable KIDNEYS:There are bilateral nephrolithiasis measuring up to 3 mm. AORTA: No abdominal aortic aneurysm identified. RETROPERITONEUM: No significant retroperitoneal abnormalities identified. MESENTERY:Mildly prominent mesenteric lymph nodes identified. SMALL BOWEL: The small bowel loops are nondistended. APPENDIX: The appendix is normal. COLON: Unremarkable URINARY BLADDER: Urinary bladder is unremarkable. REPRODUCTIVE SYSTEM: Reproductive structures are unremarkable. PNEUMOPERITONEUM: None PERITONEAL FLUID:None BONY STRUCTURES: Unremarkable ABDOMINAL WALL: Unremarkable CT/CT abdomen pelvis w con IMPRESSION: No acute findings. Bilateral nephrolithiasis. No obstructive uropathy. Enterocolitis or diverticulitis. Impression dictated by: Hiro Owens M.D. 08/04/2024 6:44 PM Dictation Location: [employer] Electronically authenticated by: [id number] Y Date: 08/04/2024 18:44
--- NOTE | 2024-08-04 17:32 | XR_ITS ---
The [address] [address] Patient Name: KIRSTY MORTENSEN MRN: [id number] date: 1990 Sex: M Assigned Patient Location: ER Current Patient Location: ER Accession/Order Number: [id number] Exam Date: 08/04/2024 18:45 Report Date: 08/04/2024 18:45 At the request of: PRAVEEN LOUISE Procedure: XR chest 1V Plain film chest Single view HISTORY: Fever. Diarrhea. COMPARISON: None FINDINGS: SUPPORT DEVICES: None POSTSURGICAL CHANGES: None HEART: Within normal limits PULMONARY MARY ANN: Within normal limits MEDIASTINUM: Unremarkable LUNGS AND PLEURA: No acute lung process, pleural effusion or pneumothorax identified. BONY STRUCTURES: Intact ADDITIONAL FINDINGS None XR/XR chest 1V IMPRESSION: No acute process. Impression dictated by: Hiro Owens M.D. 08/04/2024 6:45 PM Dictation Location: [place] [address] Electronically authenticated by: [id number] Y Date: 08/04/2024 18:45
--- NOTE | 2024-08-04 17:34 | ED_ITS ---
HPI HPI - General Adult General Chief complaint: Nausea/Vomiting/Diarrhea Stated complaint: ABD PAIN Time Seen by Provider: 08/04/24 17:22 Source: patient Mode of arrival: walk-in Limitations: no limitations History of Present Illness HPI narrative: Patient is a 33-year-old male who presents to the emergency department for a 5- day history of not feeling well after returning home from [facility]. He states he first noticed headache, hot and cold chills and sweats and has developed diarrhea throughout the week. He has not had any diarrhea since last night. He denies any visual changes, chest pain, shortness of breath, abdominal pain. He has not had any vomiting. He states his sister also has diarrhea. He saw his PCP yesterday who gave him an injection for migraine. He was not started on any additional medications or had any testing. He arrives to the emergency department tachycardic and febrile. Related Data Previous Rx's ?Medication ?Instructions ?Recorded metronidazole 500 mg tablet 500 mg PO Q12H 7 days #14 tabs 08/04/24 ondansetron 4 mg disintegrating 4 mg PO Q6H PRN nausea and 08/04/24 tablet vomiting #12 tabs Allergies Allergy/AdvReac Type Severity Reaction Status Date / Time amoxicillin Allergy Mild Rash Verified 08/04/24 17:18 Opioid HPI Opioid Management Most Recent Opioid Data: Last Pain Scale 5 Today, 17:54 Last MAR Pain Assessment Today, 17:45 Review of Systems ROS Constitutional Reports: fever and chills Ears, nose, mouth, and throat Denies: throat pain or nasal congestion Cardiovascular Denies: chest pain Respiratory Denies: shortness of breath Gastrointestinal Reports: diarrhea; Denies: abdominal pain, nausea or vomiting Genitourinary Denies: painful urination Integumentary/Breast Denies: rash Neurological Denies: numbness in extremities or weakness in extremities Hematologic/Lymphatic Denies: easy bruising or easy bleeding [facility] Medical History (Updated 08/04/24 @ 21:09 by DANI Huerta) Seasonal allergies ?J30.2 - Other seasonal allergic rhinitis (ICD-10) Globus sensation ?R09.A2 - Foreign body sensation, throat (ICD-10) Chronic GERD ?K21.9 - Gastro-esophageal reflux disease without esophagitis (ICD-10) BMI 31.0-31.9,adult ?Z68.31 - Body mass index [BMI] 31.0-31.9, adult (ICD-10) Family History (Updated 04/10/24 @ 14:39 by Magalie Aguilar) Other Family history of coronary artery disease Family history of heart disease Family history of hypertension Social History Within the past year, how often did you have a drink containing alcohol: monthly or less Smoking status: Never smoker Non-prescribed substance use: denies use 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 Cardio: Tachycardia Gastrointestinal: Abdomen is soft, nondistended and nontender to palpation Extremities: Moves extremities equally Psych: Normal mood and affect Neuro: No focal neuro deficit Skin: Warm, dry, intact Constitutional Vital Signs, click to edit/add: Last Vital Signs Temp 98.8 F 08/04/24 19:15 Pulse 112 H 08/04/24 17:18 Resp 24 H 08/04/24 17:18 BP 111/78 08/04/24 17:18 Pulse Ox 94 L 08/04/24 19:30 Course Vital Signs Vital signs: Vital Signs Temperature 103.2 F H 08/04/24 17:18 Pulse Rate 112 H 08/04/24 17:18 Respiratory Rate 24 H 08/04/24 17:18 Blood Pressure 111/78 08/04/24 17:18 Pulse Oximetry 99 08/04/24 17:18 Temperature 98.8 F 08/04/24 19:15 Pulse Rate 112 H 08/04/24 17:18 Respiratory Rate 24 H 08/04/24 17:18 Blood Pressure 111/78 08/04/24 17:18 Pulse Oximetry 94 L 08/04/24 19:30 Medical Decision Making MDM Narrative Medical decision making narrative: On arrival patient was tachycardic and febrile. He was given IV fluids, Tylenol and Toradol. He had no episodes of emesis or diarrhea in the emergency department. He has no focal neurodeficits and is awake, alert, ambulatory. He has no meningismus or nuchal rigidity. Abdomen is soft and benign. He was sent for x-rays of the chest and a CT of the abdomen and pelvis which shows no acute process. Laboratory studies reviewed and noted showing bandemia, elevated lactic acid, hypokalemia and dehydration. Patient was given 2 L of IV fluids. Repeat lactic acid is normal. Vital signs remained stable. Patient was reevaluated by attending physician. The patient has apparently had multiple people that took the trip with him that were sick with a similar illness that resolved on its own. Patient was given education and reassurance. He did not provide a stool specimen but was given an order for one as an outpatient will be started on Flagyl empirically. Zofran given as needed. Follow-up closely with PCP for reevaluation and return to the emergency department if symptoms change or worsen. Medical Records Medical records reviewed: Yes I reviewed the patient's medical records Lab Data Lab results reviewed: Yes I reviewed the patient's lab results Labs: Lab Results 08/04/24 08/04/24 08/04/24 Range/Units 17:38 17:40 19:30 WBC 8.9 (4.0-11.0) 10^3/uL RBC 5.15 (4.70-6.10) 10^6/uL Hgb 14.8 (14.0-18.0) g/dL Hct 41.7 L (42.0-54.0) % MCV 81.0 (80.0-94.0) fL MCH 28.7 (25.9-34.0) pg MCHC 35.5 H (29.9-35.2) g/dL RDW 12.1 (11.0-15.0) % Plt Count 126 L (150-450) 10^3/uL MPV 11.8 (9.5-13.5) fL Seg Neuts % (Manual) 56.0 (43.0-75.0) Band Neutrophils % 18.0 H (0-5) % Lymphocytes % (Manual) 12.0 L (20.5-60.0) % Atypical Lymphs % (Man) 4.0 % Monocytes % (Manual) 10.0 (1.7-12.0) % Eosinophils % (Manual) 0.0 L (0.9-7.0) % Basophils % (Manual) 0.0 L (0.2-2.0) % Neutrophils # (Manual) 4.98 (1.4-6.5) 10^3/uL Band Neutrophils # 1.6 H (0.0-0.3) 10^3/uL Lymphocytes # (Manual) 1.06 L (1.20-3.80) 10^3/uL Abs Atypical Lymphs Man 0.35 Monocytes # (Manual) 0.89 H (0.30-0.80) 10^3/uL Eosinophils # (Manual) 0.00 (0.00-0.70) 10^3/uL Basophils # (Manual) 0.00 (0.00-0.10) 10^3/uL VBG pH 7.541 H (7.330-7.430) VBG pCO2 31.1 L (40.0-52.0) mmHg Sodium 131 L (136-145) mmol/L Potassium 3.0 L (3.5-5.1) mmol/L Chloride 92 L (98-107) mmol/L Carbon Dioxide 27.4 (21.0-32.0) mmol/L Anion Gap 14.6 BUN 13.0 (7.0-18.0) mg/dL Creatinine 1.26 (0.70-1.30) mg/dL Est GFR ( Amer) >60 (>=60 mL/min/1.73m^2) Est GFR (Non-Af Amer) >60 (>=60 mL/min/1.73m^2) BUN/Creatinine Ratio 10.3 Glucose 121 H (74-106) mg/dL Lactate 2.2 H* 0.8 (0.4-2.0) mmol/L Calcium 8.7 (8.5-10.1) mg/dL Total Bilirubin 1.2 H (0.2-1.0) mg/dL AST 91 H (15-37) U/L ALT 117 H (16-63) U/L Alkaline Phosphatase 74 (46-116) U/L C-Reactive Protein 18.43 H (<=0.50) mg/dL Total Protein 7.9 (6.4-8.2) g/dL Albumin 3.5 (3.4-5.0) g/dL Globulin 4.4 g/dL Albumin/Globulin Ratio 0.8 Urine Color (YELLOW) Urine Clarity (CLEAR) Urine pH (5.0-9.0) Ur Specific [place] (1.005-1.025) Urine Protein (NEG/TRACE) mg/dL Urine Glucose (UA) (NEGATIVE) mg/dL Urine Ketones (NEGATIVE) mg/dL Urine Occult Blood (NEGATIVE) Urine Nitrite (NEGATIVE) Urine Bilirubin (NEGATIVE) Urine Urobilinogen (0.2-1.0) EU/dL Ur Leukocyte Esterase (NEGATIVE) Urine RBC (0-2) #/HPF Urine WBC (NONE SEEN) #/HPF Ur Squamous Epith Cells (NONE/RARE) #/LPF Urine Crystals (None Seen) #/HPF Urine Bacteria (NONE SEEN) #/HPF Urine Casts (NONE SEEN) #/LPF Urine Mucus (NONE SEEN) Ur Culture Indicated? Influenza Type A Ag Negative Influenza Type B Ag Negative SARS-CoV-2 Ag (CV2AG) Negative (NEGATIVE) 08/04/24 Range/Units 20:20 WBC (4.0-11.0) 10^3/uL RBC (4.70-6.10) 10^6/uL Hgb (14.0-18.0) g/dL Hct (42.0-54.0) % MCV (80.0-94.0) fL MCH (25.9-34.0) pg MCHC (29.9-35.2) g/dL RDW (11.0-15.0) % Plt Count (150-450) 10^3/uL MPV (9.5-13.5) fL Seg Neuts % (Manual) (43.0-75.0) Band Neutrophils % (0-5) % Lymphocytes % (Manual) (20.5-60.0) % Atypical Lymphs % (Man) % Monocytes % (Manual) (1.7-12.0) % Eosinophils % (Manual) (0.9-7.0) % Basophils % (Manual) (0.2-2.0) % Neutrophils # (Manual) (1.4-6.5) 10^3/uL Band Neutrophils # (0.0-0.3) 10^3/uL Lymphocytes # (Manual) (1.20-3.80) 10^3/uL Abs Atypical Lymphs Man Monocytes # (Manual) (0.30-0.80) 10^3/uL Eosinophils # (Manual) (0.00-0.70) 10^3/uL Basophils # (Manual) (0.00-0.10) 10^3/uL VBG pH (7.330-7.430) VBG pCO2 (40.0-52.0) mmHg Sodium (136-145) mmol/L Potassium (3.5-5.1) mmol/L Chloride (98-107) mmol/L Carbon Dioxide (21.0-32.0) mmol/L Anion Gap BUN (7.0-18.0) mg/dL Creatinine (0.70-1.30) mg/dL Est GFR ( Amer) (>=60 mL/min/1.73m^2) Est GFR (Non-Af Amer) (>=60 mL/min/1.73m^2) BUN/Creatinine Ratio Glucose (74-106) mg/dL Lactate (0.4-2.0) mmol/L Calcium (8.5-10.1) mg/dL Total Bilirubin (0.2-1.0) mg/dL AST (15-37) U/L ALT (16-63) U/L Alkaline Phosphatase (46-116) U/L C-Reactive Protein (<=0.50) mg/dL Total Protein (6.4-8.2) g/dL Albumin (3.4-5.0) g/dL Globulin g/dL Albumin/Globulin Ratio Urine Color Lt. yellow (YELLOW) Urine Clarity Clear (CLEAR) Urine pH 6.0 (5.0-9.0) Ur Specific [place] <=1.005 A (1.005-1.025) Urine Protein Trace (NEG/TRACE) mg/dL Urine Glucose (UA) Negative (NEGATIVE) mg/dL Urine Ketones 15 A (NEGATIVE) mg/dL Urine Occult Blood Small A (NEGATIVE) Urine Nitrite Negative (NEGATIVE) Urine Bilirubin Negative (NEGATIVE) Urine Urobilinogen 0.2 (0.2-1.0) EU/dL Ur Leukocyte Esterase Negative (NEGATIVE) Urine RBC 0-2 (0-2) #/HPF Urine WBC 2-5 A (NONE SEEN) #/HPF Ur Squamous Epith Cells Rare (NONE/RARE) #/LPF Urine Crystals None seen (None Seen) #/HPF Urine Bacteria Trace A (NONE SEEN) #/HPF Urine Casts None seen (NONE SEEN) #/LPF Urine Mucus None seen (NONE SEEN) Ur Culture Indicated? No Influenza Type A Ag Influenza Type B Ag SARS-CoV-2 Ag (CV2AG) (NEGATIVE) Imaging Data Chest x-ray: Attestation: I have reviewed the pertinent imaging results. Radiologist's impression: ITS Impressions Abdomen/Pelvis CT 08/04/24 17:32 IMPRESSION: No acute findings. Bilateral nephrolithiasis. No obstructive uropathy. Enterocolitis or diverticulitis. Impression dictated by: Hiro Owens M.D. 08/04/2024 6:44 PM Dictation Location: [facility] Electronically authenticated by: [id number] Y Date: 08/04/2024 18:44 Chest X-Ray 08/04/24 17:32 IMPRESSION: No acute process. Impression dictated by: Hiro Owens M.D. 08/04/2024 6:45 PM Dictation Location: [facility] Electronically authenticated by: [id number] Y Date: 08/04/2024 18:45 Discharge Plan Discharge Chief Complaint: Nausea/Vomiting/Diarrhea Clinical Impression: Diarrhea, Acute febrile illness, Headache, Acute hypokalemia Patient Disposition: Home, Self-Care Time of Disposition Decision: 20:58 Condition: Good Prescriptions / Home Meds: New metronidazole 500 mg tablet 500 mg PO Q12H 7 Days Qty: 14 0RF ondansetron 4 mg tablet,disintegrating 4 mg PO Q6H PRN (Reason: nausea and vomiting) Qty: 12 0RF Print Language: Mexican Instructions: Fever in Adults (ED), Acute Diarrhea (ED) Referrals: Shaun Lopez MD [Primary Care Provider, Family Practice] - 1 week
[2024-08-04] MEDS: ACETAMINOPHEN 500 MG TABLET 1000 MG PO (17:45)
[2024-08-04] MEDS: KETOROLAC TROMETHAMINE 30 MG/ML VIAL IVP (17:45)
[2024-08-04] MEDS: 0.9 % SODIUM CHLORIDE 1,000 ML 999 ML IV (17:45)
[2024-08-04 17:52] LABS: Hematocrit 41.7 % (42.0-54.0); Hemoglobin 14.8 g/dL (14.0-18.0); Mean Corpuscular HGB Conc 35.5 g/dL (29.9-35.2); Mean Corpuscular Hemoglobin 28.7 pg (25.9-34.0); Mean Platelet Volume 11.8 fL (9.5-13.5); Platelet Count 126 10^3/uL (150-450); Red Blood Count 5.15 10^6/uL (4.70-6.10); Red Cell Distribution Width 12.1 % (11.0-15.0); White Blood Count 8.9 10^3/uL (4.0-11.0)
[2024-08-04 17:58] LABS: PCO2 VBG 31.1 mmHg (40.0-52.0); pH VBG 7.541 (7.330-7.430)
[2024-08-04 18:05] LABS: Influenza Virus A Antigen Negative; Influenza Virus B Antigen Negative; Internal Control Within Normal Limits; SARS-CoV-2 Ag NEGATIVE (NEGATIVE)
[2024-08-04 18:10] LABS: Alanine Aminotransferase 117 U/L (16-63); Albumin Globulin Ratio 0.8; Albumin Level 3.5 g/dL (3.4-5.0); Alkaline Phosphatase 74 U/L (46-116); Anion Gap 14.6; Aspartate Amino Transferase 91 U/L (15-37); BUN Creatinine Ratio 10.3; Bilirubin Total 1.2 mg/dL (0.2-1.0); C Reactive Protein 18.43 mg/dL (<=0.50); Calcium 8.7 mg/dL (8.5-10.1); Carbon Dioxide 27.4 mmol/L (21.0-32.0); Chloride 92 mmol/L (98-107); Estimated GFR (African America >60 (>=60 mL/min/1.73m^2); Estimated GFR (Non-African Ame >60 (>=60 mL/min/1.73m^2); Globulin 4.4 g/dL; Glucose 121 mg/dL (74-106); Sodium 131 mmol/L (136-145); Total Protein 7.9 g/dL (6.4-8.2)
[2024-08-04 18:12] LABS: Band Neutrophils Absolute 1.6 10^3/uL (0.0-0.3); Lymphocytes Absolute Manual 1.06 10^3/uL (1.20-3.80); Segmented Neut Absolute Manual 4.98 10^3/uL (1.4-6.5)
[2024-08-04 18:13] LABS: Atypical Lymphocytes Abs Man 0.35; Monocytes Absolute Manual 0.89 10^3/uL (0.30-0.80)
[2024-08-04 18:14] LABS: Lactate/Lactic Acid 2.2 mmol/L (0.4-2.0)
[2024-08-04] MEDS: 0.9 % SODIUM CHLORIDE 1,000 ML 1000 ML IV (19:00)
[2024-08-04 19:55] LABS: Lactate/Lactic Acid 0.8 mmol/L (0.4-2.0)
[2024-08-04] MEDS: BUTALB/ACETAMINOPHEN/CAFFEINE 50-325-40MG TABLET 1 TAB PO (20:07)
[2024-08-04] MEDS: DEXAMETHASONE SOD PHOS 10 MG/ML VIAL IV (20:07)
[2024-08-04 20:30] LABS: Bilirubin Urine NEGATIVE (NEGATIVE); Blood Urine SMALL (NEGATIVE); Clarity Urine CLEAR (CLEAR); Color Urine LT. YELLOW (YELLOW); Glucose Urine UA NEGATIVE (NEGATIVE); Ketones Urine 15 mg/dL (NEGATIVE); Leukocyte Esterase Urine NEGATIVE (NEGATIVE); Nitrite Urine NEGATIVE (NEGATIVE); Protein Urine TRACE mg/dL (NEG/TRACE); Specific Gravity Urine <=1.005 (1.005-1.025); Urobilinogen Urine 0.2 EU/dL (0.2-1.0)
[2024-08-04 20:38] LABS: Bacteria Urine TRACE #/HPF (NONE SEEN); Cast Seen? NONE SEEN #/LPF (NONE SEEN); Crystals Seen? None Seen #/HPF (None Seen); Mucus Urine NONE SEEN (NONE SEEN); RBC Urine 0-2 #/HPF (0-2); Squamous Epithelial Cell Urine RARE #/LPF (NONE/RARE)
[2024-08-04 20:39] LABS: Urine Culture Indicated NO
[2024-08-04] MEDS: METRONIDAZOLE 250 MG TABLET 500 MG PO (21:03)
[2024-08-04] MEDS: POTASSIUM CHLORIDE 10 MEQ ER TABLET 40 MEQ PO (21:06)
[2024-08-05 07:20] LABS: A. calcoaceticus-baumannii Cpx NOT DETECTED (NOT DETECTE); Bacteroides fragilis NOT DETECTED (NOT DETECTE); Candida albicans NOT DETECTED (NOT DETECTE); Candida auris NOT DETECTED (NOT DETECTE); Candida glabrata NOT DETECTED (NOT DETECTE); Candida krusei NOT DETECTED (NOT DETECTE); Candida parapsilosis NOT DETECTED (NOT DETECTE); Candida tropicalis NOT DETECTED (NOT DETECTE); Cryptococcus neoformans/gattii NOT DETECTED (NOT DETECTE); Enterobacter cloacae complex NOT DETECTED (NOT DETECTE); Enterococcus faecalis NOT DETECTED (NOT DETECTE); Enterococcus faecium NOT DETECTED (NOT DETECTE); Haemophilus influenzae NOT DETECTED (NOT DETECTE); Klebsiella aerogenes NOT DETECTED (NOT DETECTE); Klebsiella pneumoniae group NOT DETECTED (NOT DETECTE); Listeria monocytogenes NOT DETECTED (NOT DETECTE); Neisseria meningitidis NOT DETECTED (NOT DETECTE); Proteus spp. NOT DETECTED (NOT DETECTE); Pseudomonas aeruginosa NOT DETECTED (NOT DETECTE); Serratia marcescens NOT DETECTED (NOT DETECTE); Staphylococcus epidermidis NOT DETECTED (NOT DETECTE); Staphylococcus lugdunensis NOT DETECTED (NOT DETECTE); Staphylococcus spp. NOT DETECTED (NOT DETECTE); Stenotrophomonas maltophilia NOT DETECTED (NOT DETECTE); Streptococcus agalactiae NOT DETECTED (NOT DETECTE); Streptococcus pneumoniae NOT DETECTED (NOT DETECTE); Streptococcus pyogenes NOT DETECTED (NOT DETECTE); Streptococcus spp. NOT DETECTED (NOT DETECTE)
[2024-08-05 08:32] LABS: CTX-M NOT DETECTED (NOT DETECTE); IMP NOT DETECTED (NOT DETECTE); KPC NOT DETECTED (NOT DETECTE); NDM NOT DETECTED (NOT DETECTE); OXA-48-like NOT DETECTED (NOT DETECTE); Source Blood; VIM NOT DETECTED (NOT DETECTE); mcr-1 NOT DETECTED (NOT DETECTE)
[2024-08-05 08:36] LABS: Enterobacterales DETECTED (NOT DETECTE); Salmonella spp. DETECTED (NOT DETECTE)
== END 2024-08-04 21:30 | disposition home or self-care (01) ==
PROVIDERS: Physician Assistant; Emergency Provider Emergency Medicine; Family Provider Family Medicine; PCP Family Medicine
DX: R19.7 Diarrhea, unspecified (principal); R50.9 Fever, unspecified; R51.9 Headache, unspecified; E87.6 Hypokalemia; R00.0 Tachycardia, unspecified; N20.0 Calculus of kidney
CPT/HCPCS: 36415; 71045; 74177; 80053; 81001; 82248; 82800; 83605; 85007; 85027; 86140; 87040; 87077; 87150; 87186; 87804; 87811; 96361; 96374; 96375; 99285; J1100; J1885; Q9967

== ENCOUNTER 2024-08-05 09:23 | Observation (INO) | payer OTHER, SELFPAY ==
--- OUTSIDE RECORDS SUMMARY | 2024-02-24 07:15 | XMS_ITS ---
Author Organization [facility] in [place] Address [address] [place] [address] Care Team Providers Care Entry Level Project Coordinator Name Role Phone WilianjayashreeMode Primary Care Provider [phone] Allergies Allergen (clinical drug ingredient) Drug/Non Drug [...] Status Risk Notes Problem Gastroesophageal reflux disease ([id number]) GERD (gastroeso phageal reflux disease) (K21.9) Active confirmed Vital Signs Blood pressure systolic 102 mm Hg 02/24/20 24 Blood pressure diastolic 64 mm Hg 024 Height 66 in 02/24/2024 Weight 192.2 lbs 02/24/2024 BMI 31.02 kg/m2 02/24/2024 Encounters Encounter Location Date Provider Diagnosis [facility] [address] [place] [address] 02/24/2024 Mode Lopez GERD (gastroesophage al reflux disease) K21.9 Assessments Encounter Date Diagnosis (ICD Code) Assessment Notes Treatment Notes Treatment Clinical Notes Section Notes 02/24/2024 GERD (gastroesophage al reflux disease) (ICD-10 - K21.9) Plan Of Treatment Medication Medication Name Sig Start Date Stop Date Notes Protonix 40 MG 1 tablet Orally Once a day for 30 days 02/05 Progress Notes * Jaerd MORTENSEN ADOB: [birth year] (33 yo M)Acc No.[id number]:02/24/2024 Progress Note Patient: Jared DIAZ A Provider: Maged Lopez ([facility])MD :1990 A ge:33 Y S ex:Male Date:02/24/2024 Address:[address] [place], [place] [id number] Check In:10:54 AM ESTCheck O ut:11:44 AM [...] Procedure Codes: * Preventive Medicine: Screenings/Counseling: B [place] ACTION PLAN Above Normal BMI Follow-up D ietary management education, guidance, and counseling See treatment section of progress note for complete details of management plan. * * Sign off status: Completed Visit Status: C HK (Check Out) true * Provider: Maged Lopez ([facility])MD Date: 1 04/26/2023 Generated for Printi ng/Fakristoferg/eTransmitting on: 0 08/05/2024 09:29 AM EDT History and Physical Notes * HPI [...]
--- OUTSIDE RECORDS SUMMARY | 2024-03-16 07:00 | XMS_ITS ---
Author Organization [facility] in [place] Address [address] [place] [address] Care Team Providers Care Call Center Manager Name Role Phone John Mode Primary Care Provider [phone] Allergies Allergen (clinical drug ingredient) Drug/Non Drug Allergy documented on EMR Reaction Allergy Type Onset Date Status amoxicillin Amoxicillin rash Drug Allergy Act naveen Reason For Referral Diagnosis 1 GERD (gastroesophage al reflux disease) (K21.9) Referral Organization [facility] Medicine Referring Provider First Name Mode Referring Provider Last Name John Referring Provider Speciality Family Med mani Referred Provider Trell Aragon Referred Provider Specialty General Surg matthew Referral Priority Routine REASON FOR VISIT Presents to office alone for c/o feeling like something stuck in his throat all the time. Denies any issues with choking or swallowing Medications Medication SIG (Take, Route, Fr equency, [...] ast year? No Points 0 Interpretation Negative Vital Signs Blood pressure systolic 102 mm Hg 03/16/19 25 Blood pressure diastolic 70 mm Hg 025 Height 66 in 03/16/2024 Weight 191.6 lbs 03/16/2024 BMI 30.92 kg/m2 03/16/2024 Encounters Encounter Location Date Provider [facility] [address] [facility] [place] [address] 03/16/2024 Mode Lopez GERD (gastroesophage al reflux disease) K21.9 Assessments Encounter Date Diagnosis (ICD Code) Assessment Notes Treatment Notes Treatment Clinical Notes Section Notes 03/16/2024 GERD (gastroesophage al reflux disease) (ICD-10 - K21.9) Plan Of Treatment Pending Test Test Name Order Date XR Upper GI w/ Esophogram 03/16/2024 Referrals Referral Date Details 03/16/2024 03/16/2024, Trell Aragon Progress Notes * Jared MORTENSEN ADOB: [birth year] (33 yo M)Acc No.[id number]:03/16/2024 Progress Note Patient: Jared DIAZ Provider: Maged Lopez ([facility]), :1990 A ge:33 Y S ex:Male Date:03/16/2024 Address:[address] [place] [address] [id number] Check In:10:52 AM ESTCheck O ut:11:42 AM EST Subjective: * Chief Complaints: * P resents to office alone for c/o feeling like something stuck in his throat all the time. Denies any issues with choking or swallowing * HPI: D epression Screening: PHQ-2 (2015 Edition) L ittle interest or pleasure in doing things??Not at all F eeling down, depressed, or hopeless? S everal days T otal Score 1 Fels better in AM - but as soon as eats somethifn - feels loke stuch been going on since february. * ROS: E ENT: hearing changes d [...] Unspecified heart disease. M other: alive. B parul(s): alive. S ister(s): alive. 1 brother(s) , 1 sister(s) - healthy. . * Social History: T obacco Use: T obacco Control (Standard) T obacco use: N onsmoker D rug/Alcohol: A JOHN-C (Standard) D id you have a drink containing alcohol in the past year? N o P oints 0 I nterpretation N egative * Medications: T akingProtonix(Pantoprazole Sodium) 40 MG Tablet Delayed Release 1 tablet Orally Once a day Medication List reviewed and reconciled with the patientTaking Protonix(Pantoprazole Sodium) 40 MG Tablet Delayed Release 1 tablet Orally Once a day Medication List reviewed and reconciled with the patient * Allergies: A moxizachlin: jarvis[Allergies Verified] Objective: * Vitals: W t:191.6lbs, Ht: 66 in, BP:102/70mm Hg, BMI:30.92Index, Ht-cm: 167.64 cm, Wt-k.91 kg. * Examination: P hysical Exam: GENERAL: [...] Procedure Codes: * Preventive Medicine: Screenings/Counseling: B [place] ACTION PLAN Above Normal BMI Follow-up D ietary management education, guidance, and counseling See treatment section of progress note for complete details of management plan. * * Sign off status: Completed Visit Status: C HK (Check Out) true * Provider: Maged Lopez ([facility])MD Date: 0 03/16/2024 Generated for Printi charly/Janet/eTransmitting on: 0 08/05/2024 09:29 AM EDT History and Physical Notes * HPI (History of Present Illness) Category Sub-Category Detail Notes Category Not es Depression Screening PHQ-2 (2015 Edition) Little interest or pleasure in doing things?: Not at all Fels better in AM - but as soon as eats somethifn - feels loke stuch been going on since february Feeling down, depressed, or hopeless?: S everal days Total Score: 1 Examination Category Sub-Category Detail Notes Category Not [...] oriented x 3, normal mood and affect Consultation Request Notes Referral Date Referring Provider Referred Provider Not janet 03/16/2024 Mode Lopez Michael
--- OUTSIDE RECORDS SUMMARY | 2024-08-03 10:00 | XMS_ITS ---
Author Organization [facility] in [place] Address [address] [place] [address] Care Team Providers Care Janitorial Tech Name Role Phone Mode Lopez Primary Care Provider Allergies Allergen (clinical drug ingredient) Drug/Non Drug Allergy documented on EMR Reaction Allergy Type Onset Date Status amoxicillin Amoxicillin rash Drug Allergy Act naveen REASON FOR VISIT patient is co flu symptoms, sweating, chills, congestion, diarrhea, started tuesday, returned from vacation tuesday from [facility] Medications Medication SIG (Take, Route, Frequency, Duration) [...] Status W/U Status Risk Notes Problem Migraine ([id number]) Migraine (G43.909) Active confirmed Vital Signs Temperature 99.2 degrees Fahrenheit 08/04/19 25 Blood pressure systolic 102 mm Hg 08/04/19 25 Blood pressure diastolic 68 mm Hg 025 Height 66 in 08/03/2024 Weight 184.8 lbs 08/03/2024 BMI 29.82 kg/m2 08/03/2024 Encounters Encounter Location Date Provider Diagnosis [facility] Medicine [address] [place] [address] 08/03/2024 Mode Lopez Migraine G43.909 Assessments Encounter [...] BALBINAJared ISABEL ADOB: 989 (33 yo M)Acc No.[id number]:08/03/2024 UNLOCKED PROGRESS NOTE Progress Note Patient: Jared DIAZ Provider: Maged Lopez ([facility])MD :1990 A ge:33 Y S ex:Male Date:08/03/2024 Address:[address] [place], [place] [id number] Check In:01:47 PM ESTCheck O ut:03:02 PM EST Subjective: * Chief Complaints: * 1 . Patient is co flu symptoms, sweating, chills, congestion, diarrhea, started tuesday. 2. Returned from vacation tuesday from [facility]. * HPI: G eneral: no fever maybe feverish - chills headache diarrhea - body aches had diarrehea - that part better - no blood at the time no JACKSON - no cough - no rhnorhea no ST R druze headache - pain over emple mostly now [...] and affect. Assessment: * Assessment: 1. M [facility] - G43.909 (Primary) Plan: * Treatment: * Therapeutic Injections: Ketorolac Tromethamine : 60 mg (Route: Intramuscular) given by ADOLFO Galo on right deltoid (Migraine) Orphenadrine Citrate : 60 mg (Route: Intramuscular) given by ADOLFO Galo on left deltoid (Migraine) * Procedure Codes: J 1885 TORADOL, PER 15 MG, 17269 THERAP.INJ. OF MED. INTRAMUSCULAR OR SUBCUTANEOUS, J2360 NORFLEX,UP TO 60MG. * Preventive Medicine: Screenings/Counseling: B PA ACTION PLAN Above Normal BMI Follow-up D ietary management education, guidance, and counseling * * Electronic signature of Mode Lopez MD, [id number] on 08/05/2024 at 09:29 AM EDT Sign off status: Pending Visit Status: C HK (Check Out) * Provider: Maged Lopez (TTC)MD Date: 0 08/03/2024 Generated for Teenai charly/Janet/eTransmitting on: 0 08/05/2024 09:29 AM EDT History and Physical Notes * HPI (History of Present Illness) Category Sub-Category Detail Notes Category Not es General no fever maybe feverish - chills headache diarrhea - body aches had diarrehea - that part better - no blood at the time no JACKSON - no cough - no rhnorhea no ST R druze headache - pain over emple mostly now [...]
[2024-08-05] VITALS (8 sets, daily range): BP systolic 95–113; BP diastolic 60–76; PULSE 75–112; TEMP 36.6–39.6; O2SAT 94–99; BMI 29.9
--- OUTSIDE RECORDS SUMMARY | 2024-08-05 09:29 | XMS_ITS | Patient Health Record ---
Author Organization [facility] in [place] Address [address] [place] [address] Care Team Providers Care Physician Extender Name Role Phone Mode Lopez Primary Care Provider [phone] Allergies Allergen (clinical drug ingredient) Drug/Non Drug Allergy documented on EMR Reaction Allergy Type Onset Date Status amoxicillin Amoxicillin rash Drug Allergy Act naveen Results Component Value Reference Range Notes BLOOD CULTURE ID PANEL (Not yet reviewed by provider) Interpretation: Performing Lab: Notes/Report: [facility] , CTX-M NOT DETECTED NOT DETECTE IMP NOT DETECTED NOT DETECTE KPC NOT DETECTED NOT DETECTE mcr-1 NOT DETECTED NOT DETECTE mecA/C NOT APPLICABLE NOT DETECTE mecA/C and MREJ (MRSA) NOT APPLICABLE NOT DETECTE NDM NOT DETECTED NOT DETECTE OXA-48-like NOT DETECTED NOT DETECTE Melissa/B NOT APPLICABLE NOT DETECTE VIM NOT DETECTED NOT DETECTE Source Blood Enterococcus faecalis NOT DETECTED NOT DETECTE Enterococcus faecium NOT DETECTED NOT DETECTE Listeria monocytogenes NOT DETECTED NOT DETECTE Staphylococcus spp. NOT DETECTED NOT DETECTE Staphylococcus aureus NOT DETECTED NOT DETECTE Staphylococcus epidermidis NOT DETECTED NOT DETECTE Staphylococcus lugdunensis NOT DETECTED NOT DETECTE Streptococcus spp. NOT DETECTED NOT DETECTE Streptococcus agalactiae NOT DETECTED NOT DETECTE Streptococcus pneumoniae NOT DETECTED NOT DETECTE Streptococcus pyogenes NOT DETECTED NOT DETECTE A. calcoaceticus-baumannii Cpx NOT DETECTED NOT DETECTE Bacteroides fragilis NOT DETECTED NOT DETECTE Enterobacterales DETECTED NOT DETECTE RESULTS AIXA LED TO Enterobacter cloacae complex NOT DETECTED NOT DETECTE Escherichia coli NOT DETECTED NOT DETECTE Klebsiella aerogenes NOT DETECTED NOT DETECTE Klebsiella oxytoca NOT DETECTED NOT DETECTE Klebsiella pneumoniae group NOT DETECTED NOT DETECTE Proteus spp. NOT DETECTED NOT DETECTE Salmonella spp. DETECTED NOT DETECTE RESULTS CALL ED TO Serratia marcescens NOT DETECTED NOT DETECTE Haemophilus influenzae NOT DETECTED NOT DETECTE Neisseria meningitidis NOT DETECTED NOT DETECTE Pseudomonas aeruginosa NOT DETECTED NOT DETECTE Stenotrophomonas maltophilia NOT DETECTED NOT DETECTE Nadia albicans NOT DETECTED NOT DETECTE Nadia auris NOT DETECTED NOT DETECTE Nadia glabrata NOT DETECTED NOT DETECTE Nadia krusei NOT DETECTED NOT DETECTE Nadia parapsilosis NOT DETECTED NOT DETECTE Nadia tropicalis NOT DETECTED NOT DETECTE Cryptococcus neoformans/gattii NOT DETECTED NOT DETECTE Performing Lab: see note ML - [facility] LB CBC AUTO DIFF (Not yet revie wed by provider) Interpretation: Performing Lab: Notes/Report: [facility] , White Blood Count 8.9 4.0-11.0 10 3/uL Red Blood Count 5.15 4.70-6.10 10 6/uL Hemoglobin 14.8 14.0-18.0 g/dL Hematocrit 41.7 42.0-54.0 % Mean Corpuscular Volume 81.0 80.0-94.0 fL Mean Corpuscular Hemoglobin 28.7 25.9-34.0 pg Mean Corpuscular HGB Conc 35.5 29.9-35.2 g/dL Red Cell Distribution Width 12.1 11.0-15.0 % Platelet Count 126 150-450 10 3/uL Mean Platelet Volume 11.8 9.5-13.5 fL Performing Lab: see note ML - [facility] LB CRP (Not yet reviewed by pro vider) Interpretation: Performing Lab: Notes/Report: [facility] , C Reactive Protein 18.43 <=0.50 mg/dL Performing Lab: see note ML - [facility] LB INFLUENZA A AND B AG (Not ye t reviewed by provider) Interpretation: Performing Lab: Notes/Report: [facility] , Influenza Virus A Antigen Negative Negative for Flu A protein antigen. Infection due to Flu A cannot be ruled out. Flu A antigen in the sample may be below the detection limit of the test. Influenza Virus B Antigen Negative Negative for Flu B protein antigen. Infection due to Flu B cannot be ruled out. Flu B antigen in the sample may be below the detection limit of the test. Performing Lab: see note ML - [facility] LB LACTATE or LACTIC ACID (Not yet reviewed by provider) Interpretation: Performing Lab: Notes/Report: [facility] , Lactate/Lactic Acid 2.2 0.4-2.0 mmol/L RESULT S CALLED TO DR. WILSON Performing Lab: see note ML - [facility] LB PROF 14(COMP METB) (Not yet reviewed by provider) Interpretation: Performing Lab: Notes/Report: [facility] , Sodium 131 136-145 mmol/L Potassium 3.0 3.5-5.1 mmol/L Chloride 92 98-107 mmol/L Carbon Dioxide 27.4 21.0-32.0 mmol/L Anion Gap 14.6 Glucose 121 74-106 mg/dL Blood Urea Nitrogen 13.0 7.0-18.0 mg/dL Creatinine 1.26 0.70-1.30 mg/dL Estimated GFR ( Rosalind >60 >=60 mL/min/1.73m 2 Estimated GFR (Non- Laura >60 >=60 mL/min/1.73m 2 BUN Creatinine Ratio 10.3 Calcium 8.7 8.5-10.1 mg/dL Bilirubin Total 1.2 0.2-1.0 mg/dL Aspartate Amino Transferase 91 15-37 U/L Alanine Aminotransferase 117 16-63 U/L Alkaline Phosphatase 74 46-116 U/L Total Protein 7.9 6.4-8.2 g/dL Albumin Level 3.5 3.4-5.0 g/dL Globulin 4.4 Albumin Globulin Ratio 0.8 Performing Lab: see note ML - [facility] LB Manual Differential (Not yet reviewed by provider) Interpretation: Performing Lab: Notes/Report: [facility] , Segmented Neutrophils % Manual 56.0 43.0-75.0 Band Neutrophils % 18.0 0-5 % Lymphocytes Percent Manual 12.0 20.5-60.0 % Monocytes Percent Manual 10.0 1.7-12.0 % Eosinophils Percent Manual 0.0 0.9-7.0 % Basophils Percent Manual 0.0 0.2-2.0 % Atypical Lymphocytes % Manual 4.0 Segmented Neut Absolute Manual 4.98 1.4-6.5 10 3/uL Band Neutrophils Absolute 1.6 0.0-0.3 10 3/uL Lymphocytes Absolute Manual 1.06 1.20-3.80 10 3/uL Monocytes Absolute Manual 0.89 0.30-0.80 10 3/uL Eosinophils Absolute Manual 0.00 0.00-0.70 10 3/uL Basophils Abs Manual 0.00 0.00-0.10 10 3/uL Atypical Lymphocytes Abs Man 0.35 Performing Lab: see note ML - [facility] LB Venous Blood Gas (Not yet re viewed by provider) Interpretation: Performing Lab: Notes/Report: [facility] , pH VBG 7.541 7.330-7.430 PCO2 VBG 31.1 40.0-52.0 mmHg Performing Lab: see note ML - [facility] LB SARS-CoV-2 Ag* (Not yet revi ewed by provider) Interpretation: Performing Lab: Notes/Report: [facility] , SARS-CoV-2 Ag NEGATIVE NEGATIVE This test has not been FDA cleared or approved, but has been authorized by the FDA under an Emergency Use Authorization (EUA) for use by authorized laboratories certified under CLIA that meet the requirements to perform moderate or high complexity testing. This test has been authorized only for the detection of proteins from SARS-CoV-2, not for any other viruses or pathogens. The emergency use of this test is authorized for the duration of the declaration that circumstances exist justifying the authorization of emergency use of in vitro diagnostic tests for detection and/or diagnosis of Covid-19 under section 564(b)(1) of the Act, 21 U.S.C. 360bbb-3(b)(1), unless the declaration is terminated or authorization is revoked sooner. Performing Lab: see note ML - [facility] LB UA Micro, reflex to culture (Not yet reviewed by provider) Interpretation: Performing Lab: Notes/Report: [facility] , Color Urine LT. YELLOW YELLOW Clarity Urine CLEAR CLEAR Specific [place] Urine <=1.005 1.005-1.025 pH Urine 6.0 5.0-9.0 Protein Urine TRACE NEG/TRACE mg/dL Glucose Urine UA NEGATIVE NEGATIVE mg/dL Bilirubin Urine NEGATIVE NEGATIVE Ketones Urine 15 NEGATIVE mg/dL Blood Urine SMALL NEGATIVE Nitrite Urine NEGATIVE NEGATIVE Urobilinogen Urine 0.2 0.2-1.0 EU/dL Leukocyte Esterase Urine NEGATIVE NEGATIVE WBC Urine 2-5 NONE SEEN #/HPF RBC Urine 0-2 0-2 #/HPF Bacteria Urine TRACE NONE SEEN #/HPF Mucus Urine NONE SEEN NONE SEEN Squamous Epithelial Cell Urine RARE NONE/RARE #/LPF Crystals Seen? None Seen None Seen #/HPF Cast Seen? NONE SEEN NONE SEEN #/LPF Urine Culture Indicated NO Performing Lab: see note ML - [facility] LB XR chest 1V (Not yet reviewe d by provider) Interpretation: Performing Lab: Notes/Report: Source Facility: [place] [address] XRay Report Signed Patient: JARED MORTENSEN MR#: [id number] : 1990 Acct:[id number] Age/Sex: 33 / M ADM Date: 08/04/24 Loc: ER Attending Dr: Ordering Physician: Catalina Vasquez Date of Service: 08/04/24 Procedure(s): XR chest 1V Accession Number(s): [id number] cc: Shaun Lopez M.D.; Catalina Vasquez [place] [id number] Patient Name: JARED MORTENSEN MRN: [id number] date: 1990 Sex: M Assigned Patient Location: ER Current Patient Location: ER Accession/Order Number: [id number] Exam Date: 08/04/2024 18:45 Report Date: 08/04/2024 18:45 At the request of: CATALINA LOUISE Procedure: XR chest 1V Plain film chest Single view HISTORY: Fever. Diarrhea. COMPARISON: None FINDINGS: SUPPORT DEVICES: None POSTSURGICAL CHANGES: None HEART: Within normal limits PULMONARY MARY ANN: Within normal limits MEDIASTINUM: Unremarkable LUNGS AND PLEURA: No acute lung process, pleural effusion or pneumothorax identified. BONY STRUCTURES: Intact ADDITIONAL FINDINGS None XR/XR chest 1V IMPRESSION: No acute process. Impression dictated by: Hiro Owens M.D. 08/04/2024 6:45 PM Dictation Location: [place] [address] Electronically authenticated by: [id number] Y Date: 08/04/2024 18:45 Dictated By: Hiro Owens D.O. Signed By: 08/04/241847 DD/ 44 TD/TT: Dining Room Server: The [address] [address] XRay Report Signed Patient: Pipo MORTENSEN MR#: [id number] : 1990 Acct:[id number] Age/Sex: 33 / M ADM Date: 08/04/24 Loc: ER Attending Dr: Ordering Physician: Catalina Vasquez Date of Service: 08/04/24 Procedure(s): XR janneth st 1V Accession Number(s): [id number] cc: Shaun Lopez M.D. ; Catalina Vasquez [place] [id number] Patient Name: JARED MORTENSEN MRN: [id number] date: 1990 Sex: M Assigned Patient Location: ER Current Patient Location: ER Accession/Order Numb er: [id number] Exam Date: 08/04/2024 18:45 Report Date: 08/04/2024 18:45 At the request of: CATALINA LOUISE Procedure: XR chest 1V Plain film chest Sin gle view HISTORY: Fever. Diarrhea. COMPARISON: None FINDINGS: SUPPORT DEVICES: None POSTSURGICAL CHANGES : None HEART: Within normal limits PULMONARY MARY ANN: With in normal limits MEDIASTINUM: Unremarkable LUNGS AND PLEURA: No acute lung process, pleural effusion or pneumothorax identified. BONY STRUCTURES: Intact ADDITIONAL FINDINGS None XR/XR chest 1V IMPRESSION: No acute process. Impression dictated by: Hiro Owens M.D. 08/04/2024 6:45 PM Dictation Location: [place] [address] Electronically authenticated by: [id number] Y Date: 08/04/2024 18:45 Dictated By: Hiro Owens D.O. Signed By: 08/04/241847 DD/ 44 TD/TT: Dining Room Server: CT abdomen pelvis w con (Not yet reviewed by provider) Interpretation: Performing Lab: Notes/Report: Source Facility: [facility] [place] [address] CT Scan Report Signed Patient: JARED MORTENSEN MR#: [id number] : 1990 Acct:[id number] Age/Sex: 33 / M ADM Date: 08/04/24 Loc: ER Attending Dr: Ordering Physician: Catalina Vasquez Date of Service: 08/04/24 Procedure(s): CT abdomen pelvis w con Accession Number(s): [id number] cc: Shaun Lopez M.D. [place] [address] Patient Name: JARED MORTENSEN MRN: [facility]:[id number] date: 1990 Sex: M Assigned Patient Location: ER Current Patient Location: ER Accession/Order Number: [id number] Exam Date: 08/04/2024 18:38 Report Date: 08/04/2024 18:44 At the request of: CATALINA LOUISE Procedure: CT abdomen pelvis w con CT Abdomen and Pelvis withcontrast TECHNIQUE: Axial imaging with 2-D reconstruction.100 cc of Omnipaque 300. The CT exam was performed using one or more the following dose reduction techniques: Automated exposure control, adjustment of the MA and/or Kv according to patient size, or use of the iterative reconstruction technique. COMPARISON: None History: Fever. Diarrhea. LIMITATIONS: None LOWER THORAX Unremarkable LIVER: Unremarkable GALLBLADDER: No gallbladder abnormality identified. BILE DUCTS: No dilatation SPLEEN: Unremarkable PANCREAS: Unremarkable ADRENAL GLANDS: Unremarkable KIDNEYS:There are bilateral nephrolithiasis measuring up to 3 mm. AORTA: No abdominal aortic aneurysm identified. RETROPERITONEUM: No significant retroperitoneal abnormalities identified. MESENTERY:Mildly prominent mesenteric lymph nodes identified. SMALL BOWEL: The small bowel loops are nondistended. APPENDIX: The appendix is normal. COLON: Unremarkable URINARY BLADDER: Urinary bladder is unremarkable. REPRODUCTIVE SYSTEM: Reproductive structures are unremarkable. PNEUMOPERITONEUM: None PERITONEAL FLUID:None BONY STRUCTURES: Unremarkable ABDOMINAL WALL: Unremarkable CT/CT abdomen pelvis w con IMPRESSION: No acute findings. Bilateral nephrolithiasis. No obstructive uropathy. Enterocolitis or diverticulitis. Impression dictated by: Hiro Owens M.D. 08/04/2024 6:44 PM Dictation Location: [place] [address] Electronically authenticated by: [id number] Y Date: 08/04/2024 18:44 Dictated By: Hiro Owens D.O. Signed By: 08/04/241846 DD/ 43 TD/TT: Dining Room Server: [place] [address] CT Scan Report Signed Patient: Pipo MORTENSEN MR#: [id number] : 1990 Acct:[id number] Age/Sex: 33 / M ADM Date: 08/04/24 Loc: ER Attending Dr: Ordering Physician: Catalina Vasquez Date of Service: 08/04/24 Procedure(s): CT abdomen pelvis w con Accession Number(s): [id number] cc: Shaun Lopez M.D. [place] [id number] Patient Name: JARED MORTENSEN MRN: [id number] date: 1990 Sex: M Assigned Patient Location: ER Current Patient Location: ER Accession/Order Numb er: [id number] Exam Date: 08/04/2024 18:38 Report Date: 08/04/2024 18:44 At the request of: CATALINA LOUISE Procedure: CT abdome n pelvis w con CT Abdomen and Pelvi s withcontrast TECHNIQUE: Axial imaging with 2-D reconstruction.100 cc of Omnipaque 300. The CT exam was performe d using one or more the following dose reduction techniques: Automate d exposure control, adjustment of the MA and/or Kv according to patient size, or use of the iterative reconstruction technique. COMPARISON: None History: Fever. Diarrhea. LIMITATIONS: None LOWER THORAX Unremarkable LIVER: Unremarkable GALLBLADDER: No gallbladder abnormality identified. BILE DUCTS: No dilatation SPLEEN: Unremarkable PANCREAS: Unremarkable ADRENAL GLANDS: Unremarkable KIDNEYS:There are bilateral nephrolithiasis measuring up to 3 mm. AORTA: No abdominal aortic aneurysm identified. RETROPERITONEUM: No significant retroperitoneal abnormalities identified. MESENTERY:Mildly prominent mesenteric lymph nodes identified. SMALL BOWEL: The sma ll bowel loops are nondistended. APPENDIX: The append ix is normal. COLON: Unremarkable URINARY BLADDER: Urinary bladder is unremarkable. REPRODUCTIVE SYSTEM: Reproductive structures are unremarkable. PNEUMOPERITONEUM: None PERITONEAL FLUID:None BONY STRUCTURES: Unremarkable ABDOMINAL WALL: Unremarkable CT/CT abdomen pelvis w con IMPRESSION: No acute findings. Bilateral nephrolithiasis. No obstructive uropathy. Enterocoli tis or diverticulitis. Impression dictated by: Hiro Owens M.D. 08/04/2024 6:44 PM Dictation Location[email or web address] Electronically authenticated by: [id number] Y Date: 08/04/2024 18:44 Dictated By: Hiro Owens D.O. Signed By: 08/04/241846 DD/ 43 TD/TT: Dining Room Server: LACTATE or LACTIC ACID (Not yet reviewed by provider) Interpretation: Performing Lab: Notes/Report: [facility] , Lactate/Lactic Acid 0.8 0.4-2.0 mmol/L Performing Lab: see note ML - [facility] LB Reason For Referral Diagnosis 1 GERD (gastroesophage al reflux disease) (K21.9) Referral Organization [facility] Medicine Referring Provider First Name Mode Referring Provider Last Name John Referring Provider Speciality Family Med mani Referred Provider Trell Aragon Referred Provider Specialty General Surg matthew Referral Priority Routine Medications Medication SIG (Take, Route, Frequency, Duration) Notes Start Date End Date Status Protonix 40 MG 1 tablet Orally Once a day for 30 days 02/24/2024 Active tiZANidine HCl 4 MG 1 table Orally tid p kandy chambers for 10 days 08/03/2024 Active Diclofenac Sodium [...] Status Risk Notes Problem Gastroesophageal reflux disease (046612725) GERD (gastroesoph ageal reflux disease) (K21.9) Active confirmed Problem Migraine (44596359) Migraine (G43.909) Active confirmed Vital Signs Temperature 99.2 degrees Fahrenheit 08/03/2024 Blood pressure diastolic 68 mm Hg 08/03/2024 Height 66 in 08/03/2024 Blood pressure systolic 102 mm Hg 08/03/2024 Weight 184.8 lbs 08/03/2024 BMI 29.82 kg/m2 08/03/2024 Encounters Encounter Location Date Provider Diagnosis [facility] [address] [place] [address] 02/24/2024 Mode Hoy GERD (gastroesophage al reflux disease) K21.9 [place] [address] [place] [address] 08/03/2024 Mode Hoy Migraine G43.[address] [address] 03/16/2024 Mode Hoy GERD (gastroesophage al reflux disease) K21.9 Assessments Encounter Date Diagnosis (ICD Code) Assessment Notes Treatment Notes Treatment Clinical Notes Section Notes 02/24/2024 GERD (gastroesophage al reflux disease) (ICD-10 - K21.9) 03/16/2024 GERD (gastroesophage al reflux disease) (ICD-10 - K21.9) 08/03/2024 Migraine (ICD-10 - G43.909) Plan Of Treatment Pending Test Test Name Order Date XR Upper GI w/ Esophogram 03/16/2024 BLOOD CULTURE ID PANEL 08/04/2024 CBC AUTO DIFF 08/04/2024 CRP 08/04/2024 INFLUENZA A AND B AG 08/04/2024 LACTATE or LACTIC ACID 08/04/2024 LACTATE or LACTIC ACID 08/04/2024 PROF 14(COMP METB) 08/04/2024 Manual Differential 08/04/2024 XR chest 1V 08/04/2024 CT abdomen pelvis w con 08/04/2024 Venous Blood Gas 08/04/2024 SARS-CoV-2 Ag* 08/04/2024 UA Micro, reflex to culture 08/04/2024 Insurance Providers Payer Name Payer Address Payer Phone Subscriber Number Group Number Insured Name Patient Relationship to Insured Coverage Start Date Coverage End Date [facility] [address] [place] [phone] [id number] Jared Mortensen Self - patient is the insured Medications Administered Medication Instructions Date of Administration Dosage Notes Ketorolac Tromethamine 08/03/2024 60 mg Orphenadrine Citrate 08/03/2024 60 mg Medical (General) History Surgical History Surgery Date(Month/Year) EGD Dr Aragon 04/18/24 Hospitalization History Reason Date(Month/Year) denies
--- OUTSIDE RECORDS SUMMARY | 2024-08-05 09:30 | XMS_ITS | Clinical Summary ---
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
--- OUTSIDE RECORDS SUMMARY | 2024-08-05 09:30 | XMS_ITS | CCD ---
Author Organization [facility] Care Team Providers Care Pharmacy Assistant Name Role Phone REBEL CAZARES Attending Unavailable REBEL CAZARES Referring Unavailable Shaun Lopez Primary Care Physician Trell JARQUIN Attending Unavailable Shaun Lopez Referring Unavailable Trell JARQUIN Attending Unavailable NILLTrell Admitting Unavailable NILLTrell Attending Unavailable NILL, Trell Arndt Attending Unavailable NILL, Trell Arndt Attending Unavailable Allergies Allergy Classification Reported Allergen(s) Allergy Type Date of Onset Reaction(s) Facility (4 sources) Penicillin; Translations: [penicillin] Drug Allergy Eruption of skin (disorder) [facility] Medications Current Medications Medication Drug Class(es) Dates Sig (Normalized) Sig (Original) pantoprazole 40 mg delayed release oral tablet (2 sources) Proton Pump Inhibitor Start: 04-20-2024 End: 06-15-2024 take 1 tablet by mouth twice daily Protonix 40 mg Tab-DR 40 mg = 1 tab(s), Oral, BID, X 14 day(s), # 28 tab(s), Refills(s) 3, Pharmacy: [facility]/pharmacy #[id number], 167.6, cm, 03/28/24 14:21:00 EST, Height/Length [...] (Exhl gas) Negative Invalid Interpretation Code Negative [facility] Comment on above: Result Comment: Performed at: [facility] [address] [id number] PhD Nilsa Kerr Performed By: #### 1 [id number] #### [facility] [address] [place] [address] Ambulatory Visit Summaryon 0 05-02-2024 Ambulatory Visit [...] Follow-Up Appointments Tuesday 8:00 AM EDT Where: [facility] [address] [place] [address] [address] [place] [address]- Medications What How Much When Why Instructions [...] choosing us for your care. Merle Chou [facility] General Surgery Office/Clini c Noteon 05-02-2024 General [...] E&M of Est. Patient Low 20-29 Min 52085 Helicobacter pylori; breath test analysis for urease activity, non-radioactive isotope (eg, C-13) 8 2. Globus sensation (R09.A2: Foreign body sensation, throat) improving Ordered: E&M of Est. Patient Low 20-29 Min 71430 Helicobacter pylori; breath test analysis for urease activity, non-radioactive isotope (eg, C-13) 8 3. Helicobacter positive gastritis (K29.70: Gastritis, unspecified, without bleeding) see # 1 Ordered: E&M of Est. Patient Low 20-29 Min 56432 Helicobacter pylori; breath test analysis for urease [...] mRNA BNT-162b2 vax 06/18/2020 Recorded 2024-03-19: TPVAL [facility] Comment on above: Result Comment: Electronically Signed [...] you for choosing us for your care. [facility] XR CHEST 2 VIEWSon XR CHEST 2 [...] 03-28-2024 14:18-0500 Blood Pressure Location Trell NILL [facility] 03-28-2024 14:18-0500 Diastolic blood pressure 82 mm[Hg] Trell NILL [facility] 03-28-2024 14:18-0500 Heart rate 72 /min Trell NILL [facility] 03-28-2024 14:18-0500 Respiratory rate 16 /min Trell NILL [facility] 03-28-2024 14:18-0500 Systolic blood pressure 112 mm[Hg] Trell NILL [facility] Encounters Encounter Date Encounter Type Care Provider Facility Start: 06-18-2024 End: 06-18-2024 Lab Drop off Trell R NILL [facility] Start: 06-18-2024 End: 06-18-2024 ambulatory Trell R NILL Facility:[facility] Start: 05-02-2024 End: 05-02-2024 ambulatory Trell R NILL Facility:[facility] Start: 05-02-2024 End: 05-02-2024 Patient encounter procedure Trell R NILL [facility] Start: 04-18-2024 End: 04-18-2024 ambulatory Trell R NILL Facility:CD:[id number] Start: 03-28-2024 End: 03-28-2024 ambulatory Trell R NILL Facility:[facility] Start: 03-28-2024 End: 03-28-2024 Patient encounter procedure Trell JARQUIN [facility] Start: 03-19-2024 ambulatory Trell JARQUIN Facility:[facility] Start: 05-15-2023 End: 05-16-2023 ambulatory REBEL CAZARES Not Available Procedures Date Procedure Procedure Detail Performing Clinician Start: 04-18-2024 Esophagogastroduodenoscopy Trell DUVALL None (qualifier value) Mauricio JARQUIN Immunizations Immunization Date Immunization Notes Care Provider Fa cility 03-20-2021 SARS-CoV-2 (COVID-19 ) mRNA BNT-162b2 vax Trell NILL [facility] 07-09-2020 SARS-CoV-2 (COVID-19 ) mRNA BNT-162b2 vax Trell DUVALL [facility] Comment on above: Result Comment: 2024: TPVAL 06-18-2020 SARS-CoV-2 (COVID-19 ) mRNA BNT-162b2 vax Trell DUVALL [facility] Comment on above: Result Comment: 2024: TPVAL Payers Date Payer Category Payer Unknown [id number] 2024 Unknown [id number] 2023 Unknown [id number] 1988 Unknown [id number] 2.16.84 [id number] 1988 Unknown [id number] 2.16.84 [id number] 1988 Unknown [id number] 2.16.8 [id number] 1988 Unknown [id number] 2.16.8 [id number] 1988 Unknown [id number] 2.16.8 [id number] 1988 Unknown [id number] 2.16.8 [id number] 1988 Unknown [id number] 2.16.8 [id number] Social History Date Type Detail Facility Start: 03-28-2024 End: 05-02-2024 Tobacco smoking status Never smoked tobacco (finding) [facility] Tobacco smoking status Never [facility] Sex Assigned At Male [facility] Sexual Orientation [facility] Start: 06-18-2009 Sex Male (finding) [facility] Functional Status Date Assessment Result Facility 05-02-2024 Functional Status N/A [facility] 03-28-2024 Functional Status N/A [facility] Evaluation + Plan note 06-18-2024 Note Date & Type Note Facility 06-18-2024 Evaluation + Plan note Diagnostic Tests PendingH. pylori Breath Test 06/18/24 [facility] Clinical Note 06-18-2024 Note Date & Type [...] BNT-162b2 vax 06/18/2020 Recorded 2024-03-19: ALVA Chou [facility] Clinical Note 03-28-2024 Note Date & Type [...] mRNA BNT-162b2 vax 06/18/2020 Recorded 2024-03-19: TPVAL [facility] Comment on above: Result Comment: Elec tronically Signed By: MILKA NASH, Trell Epperson\Date and Time Signed: 03/28/24 14:54 EST Evaluation + Plan note Note Date & Type Note Facility Evaluation + Plan note No data available for this section [facility] Evaluation + Plan note Note Date & Type Note Facility Evaluation + Plan note Future Appointments Appointment Date:06/18/2024 08:00:00 AM Scheduled Provider: Location:[facility] Appointment Type:[facility] Nurse Visit [facility] Discharge instructions Note Date & Type Note Facility Hospital Discharge instructions No data available for this section [facility] Progress note Note Date & Type Note Facility Progress note No data available for this section [facility] Summary Purpose Family History No Family History [...] section and content) DATE CREATED AUTHOR 05/20/2023 [facility] DATE CREATED AUTHOR AUTHOR'S ORGANIZ ATION 06/20/2024 [facility] DATE CREATED AUTHOR AUTHOR'S ORGANIZ ATION 06/27/2024 [facility] Patient Care team informatio n (unrecognized section and content) Personnel Name: Shaun Lopez MD Address: Address: [address] [place], [place] [address], [place] [address] Personnel Name: John NASHShaun Address: Address: [address] [place] [address] [place] [id number] Personnel Name: John NASHShaun Address: [address] [place] [address] [place], [place] [address] [employer]: FOR RECORDS PERTAINING TO PATIENTS [...] BE BASED ON THE PRIMARY CLINICAL RECORDS. [employer] [facility]. provides no warranty or guarantee of the accuracy or completeness of information in this document.
[2024-08-05] MEDS: CIPROFLOXACIN IN 5 % DEXTROSE 400 MG/200 ML PREMIX 200 MG IV ×2 (10:00→20:45)
[2024-08-05 10:01] LABS: Basophils Percent Auto 0.2 % (0.2-2.0); Hematocrit 42.5 % (42.0-54.0); Hemoglobin 15.1 g/dL (14.0-18.0); Immature Granulocytes Pct Auto 0.7 % (0.0-0.5); Lymphocytes Absolute Auto 0.8 10^3/uL (1.2-3.8); Mean Corpuscular HGB Conc 35.5 g/dL (29.9-35.2); Mean Corpuscular Hemoglobin 29.1 pg (25.9-34.0); Mean Corpuscular Volume 81.9 fL (80.0-94.0); Mean Platelet Volume 11.6 fL (9.5-13.5); Monocytes Absolute Auto 0.7 10^3/uL (0.3-0.8); Monocytes Percent Auto 4.7 % (1.7-12.0); Neutrophils Absolute Auto 12.3 10^3/uL (1.4-6.5); Neutrophils Percent Auto 88.4 % (43.0-75.0); Platelet Count 122 10^3/uL (150-450); Red Blood Count 5.19 10^6/uL (4.70-6.10); Red Cell Distribution Width 12.7 % (11.0-15.0)
[2024-08-05 10:16] LABS: Alanine Aminotransferase 112 U/L (16-63); Albumin Globulin Ratio 0.8; Albumin Level 3.4 g/dL (3.4-5.0); Alkaline Phosphatase 72 U/L (46-116); Anion Gap 12.8; Aspartate Amino Transferase 62 U/L (15-37); BUN Creatinine Ratio 13.5; Bilirubin Total 0.8 mg/dL (0.2-1.0); Calcium 8.7 mg/dL (8.5-10.1); Carbon Dioxide 28.5 mmol/L (21.0-32.0); Chloride 99 mmol/L (98-107); Estimated GFR (African America >60 (>=60 mL/min/1.73m^2); Estimated GFR (Non-African Ame >60 (>=60 mL/min/1.73m^2); Globulin 4.5 g/dL; Glucose 147 mg/dL (74-106); Potassium 3.3 mmol/L (3.5-5.1); Sodium 137 mmol/L (136-145); Total Protein 7.9 g/dL (6.4-8.2)
[2024-08-05 10:21] LABS: Lactate/Lactic Acid 2.2 mmol/L (0.4-2.0)
[2024-08-05] MEDS: 0.9 % SODIUM CHLORIDE 1,000 ML 1000 ML IV ×2 (10:35→17:29)
--- NOTE | 2024-08-05 10:38 | ED_ITS ---
HPI HPI - General Adult General Chief complaint: Recheck/Abnormal Lab/Rx Stated complaint: ABNORMAL LABS Time Seen by Provider: 08/05/24 09:34 Source: patient Mode of arrival: walk-in Limitations: no limitations History of Present Illness HPI narrative: The patient was just evaluated yesterday for abdominal pain nausea vomiting and fever, the patient was just coming from [facility] and one of his family members are having similar symptoms. Patient have decreased p.o. intake he only had some banana since yesterday. He was discharged almost toward the evening when he was evaluated in the ER he was feeling much better after he was provided with fluids but it was found that he have a positive blood culture for Salmonella Patient still have no good appetite he did not drink any water since yesterday he only had some banana. Denying any fever at the moment Related Data Previous Rx's ?Medication ?Instructions ?Recorded metronidazole 500 mg tablet 500 mg PO Q12H 7 days #14 tabs 08/04/24 ondansetron 4 mg disintegrating 4 mg PO Q6H PRN nausea and 08/04/24 tablet vomiting #12 tabs Allergies Allergy/AdvReac Type Severity Reaction Status Date / Time amoxicillin Allergy Mild Rash Verified 08/04/24 17:18 Opioid HPI Opioid Management Most Recent Opioid Data: Last Pain Scale 0 Today, 09:37 Last MAR Pain Assessment 08/04/24, 17:45 Review of Systems ROS Status of ROS 10 or more systems reviewed and unremark able except as noted in history and below PFSH PFS Medical History (Updated 08/05/24 @ 10:39 by Ingrid Baum MD) Seasonal allergies ?J30.2 - Other seasonal allergic rhinitis (ICD-10) Globus sensation ?R09.A2 - Foreign body sensation, throat (ICD-10) Chronic GERD ?K21.9 - Gastro-esophageal reflux disease without esophagitis (ICD-10) BMI 31.0-31.9,adult ?Z68.31 - Body mass index [BMI] 31.0-31.9, adult (ICD-10) Family History (Updated 04/10/24 @ 14:39 by Magalie Aguilar) Other Family history of coronary artery disease Family history of heart disease Family history of hypertension Social History Within the past year, how often did you have a drink containing alcohol: monthly or less Smoking status: Never smoker Non-prescribed substance use: denies use 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 General: Well-appearing and in no apparent distress. Skin: Warm, dry, no pallor noted. No rash. Head: Normocephalic, atraumatic. Neck: Supple, non-tender. Eye: Pupils are equal, round and EOMI. No scleral icterus. Cardiovascular: Regular Rate and Rhythm without murmur, gallop or rub. Respiratory: No accessory muscle use or respiratory distress. Lungs are clear to auscultation, no wheezing, rales or rhonchi Chest Wall: no tenderness Back: No midline thoracic or lumbar vertebral tenderness. No CVA tenderness Musculoskeletal: normal ROM, no calf or popliteal tenderness, no lower extremity edema/swelling GI: Abdomen is soft, non-distended. Normal bowel sounds. No masses appreciated. No tenderness to palpation. No rebound, guarding, or rigidity noted. Neurological: A&O x4. No cranial nerve dysfunction observed. No truncal ataxia. Moves all extremities. Sensation intact. Psychiatric: Cooperative and interactive. Normal mood and affect. Constitutional Vital Signs, click to edit/add: Last Vital Signs Temp 97.9 F 08/05/24 09:26 Pulse 84 08/05/24 09:26 Resp 16 08/05/24 09:26 BP 109/70 08/05/24 09:26 Pulse Ox 99 08/05/24 09:26 O2 Del Method Room Air 08/05/24 09:26 Course Vital Signs Vital signs: Vital Signs Temperature 97.9 F 08/05/24 09:26 Pulse Rate 84 08/05/24 09:26 Respiratory Rate 16 08/05/24 09:26 Blood Pressure 109/70 08/05/24 09:26 Pulse Oximetry 99 08/05/24 09:26 Oxygen Delivery Method Room Air 08/05/24 09:26 Temperature 97.9 F 08/05/24 09:26 Pulse Rate 84 08/05/24 09:26 Respiratory Rate 16 08/05/24 09:26 Blood Pressure 109/70 08/05/24 09:26 Pulse Oximetry 99 08/05/24 09:26 Oxygen Delivery Method Room Air 08/05/24 09:26 Medical Decision Making MDM Narrative Medical decision making narrative: The patient have asked to blood cultures are positive for Salmonella with his presentation yesterday he was called to be reevaluated in the ER although he did mention that he was feeling better but His CBC shows leukocytosis today his lactic acid is still 2.2 he was provided yesterday with enough fluid to drop down his lactic acid to 0.8 after 2 L but the patient was started right now with 1 L No acute kidney injury and no other pathology detected The patient will be admitted for observation and IV antibiotic he was started on ciprofloxacin IV Patient case was discussed with Dr. Lopez and he agreed with above-mentioned plan Lab Data Labs: Lab Results 08/05/24 Range/Units 09:54 WBC 14.0 H (4.0-11.0) 10^3/uL RBC 5.19 (4.70-6.10) 10^6/uL Hgb 15.1 (14.0-18.0) g/dL Hct 42.5 (42.0-54.0) % MCV 81.9 (80.0-94.0) fL MCH 29.1 (25.9-34.0) pg MCHC 35.5 H (29.9-35.2) g/dL RDW 12.7 (11.0-15.0) % Plt Count 122 L (150-450) 10^3/uL MPV 11.6 (9.5-13.5) fL Neut % (Auto) 88.4 H (43.0-75.0) % Lymph % (Auto) 6.0 L (20.5-60.0) % [place] % (Auto) 4.7 (1.7-12.0) % Eos % (Auto) 0.0 L (0.9-7.0) % Baso % (Auto) 0.2 (0.2-2.0) % Neut # (Auto) 12.3 H (1.4-6.5) 10^3/uL Lymph # (Auto) 0.8 L (1.2-3.8) 10^3/uL [place] # (Auto) 0.7 (0.3-0.8) 10^3/uL Eos # (Auto) 0.0 (0.0-0.7) 10^3/uL Baso # (Auto) 0.0 (0.0-0.1) 10^3/uL Abs Immat Gran (auto) 0.10 H (0.00-0.03) 10^3/uL Imm/Tot Granulo (auto) 0.7 H (0.0-0.5) % Sodium 137 (136-145) mmol/L Potassium 3.3 L (3.5-5.1) mmol/L Chloride 99 (98-107) mmol/L Carbon Dioxide 28.5 (21.0-32.0) mmol/L Anion Gap 12.8 BUN 14.0 (7.0-18.0) mg/dL Creatinine 1.04 (0.70-1.30) mg/dL Est GFR ( Amer) >60 (>=60 mL/min/1.73m^2) Est GFR (Non-Af Amer) >60 (>=60 mL/min/1.73m^2) BUN/Creatinine Ratio 13.5 Glucose 147 H (74-106) mg/dL Lactate 2.2 H* (0.4-2.0) mmol/L Calcium 8.7 (8.5-10.1) mg/dL Total Bilirubin 0.8 (0.2-1.0) mg/dL AST 62 H (15-37) U/L ALT 112 H (16-63) U/L Alkaline Phosphatase 72 (46-116) U/L Total Protein 7.9 (6.4-8.2) g/dL Albumin 3.4 (3.4-5.0) g/dL Globulin 4.5 g/dL Albumin/Globulin Ratio 0.8 Discharge Plan Discharge Chief Complaint: Recheck/Abnormal Lab/Rx Clinical Impression: Salmonella bacteremia, Dehydration Patient Disposition: Admitted as Observation Time of Disposition Decision: 10:39
--- NOTE | 2024-08-05 11:04 | P.HP_ITS ---
HPI H&P: HPI History of Present Illness Chief complaint: ABNORMAL LABS Narrative: Patient was seen in the office for 5 days ago, still with not feeling well no real pain some diarrhea since the return from [facility] about 3 weeks ago, presented the emergency room yesterday just with feeling worse, blood cultures were obtained and blood culture returned today is positive for Salmonella, patient brought back in for at least observation and IV therapy I saw patient in the emergency room, resting comfortably without really specific complaint, diarrhea is slightly better than what had been, no abdominal pain Opioid HPI Opioid Management Most Recent Pain and Opioid Data: Last Pain Scale 0 Today, 09:37 Last MAR Pain Assessment 08/04/24, 17:45 PFSH PFSH Medical History (Updated 08/05/24 @ 10:39 by Ingrid Baum MD) Seasonal allergies ?J30.2 - Other seasonal allergic rhinitis (ICD-10) Globus sensation ?R09.A2 - Foreign body sensation, throat (ICD-10) Chronic GERD ?K21.9 - Gastro-esophageal reflux disease without esophagitis (ICD-10) BMI 31.0-31.9,adult ?Z68.31 - Body mass index [BMI] 31.0-31.9, adult (ICD-10) Family History (Updated 04/10/24 @ 14:39 by Magalie Aguilar) Other Family history of coronary artery disease Family history of heart disease Family history of hypertension Social History Within the past year, how often did you have a drink containing alcohol: monthly or less Smoking status: Never smoker Non-prescribed substance use: denies use 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 Highest level of school completed/degree received: Associate degree: occupational, technical, vocational program Little interest or pleasure in doing things: not at all Feeling down, depressed, or hopeless: not at all Meds Home Medications and Allergies Home Medications ?Medication ?Instructions ?Recorded ?Confirmed ?Type metronidazole 500 mg tablet 500 mg PO Q12H 7 days #14 tabs 08/04/24 08/05/24 Rx ondansetron 4 mg disintegrating 4 mg PO Q6H PRN nausea and 08/04/24 08/05/24 Rx tablet vomiting #12 tabs Allergies Allergy/AdvReac Type Severity Reaction Status Date / Time amoxicillin Allergy Mild Rash Verified 08/04/24 17:18 Exam Constitutional Vital Signs, click to edit/add: Last Vital Signs Temp 97.9 F 08/05/24 09:26 Pulse 84 08/05/24 09:26 Resp 16 08/05/24 09:26 BP 109/70 08/05/24 09:26 Pulse Ox 99 08/05/24 09:26 O2 Del Method Room Air 08/05/24 09:26 Documenting provider has reviewed patient's vital signs: yes Common normals: no apparent distress Chest Common normals: inspection of chest normal Respiratory Common normals: normal respiratory effort, no retractions and no use of accessory muscles Cardio Common normals: regular rate, regular rhythm and no murmurs GI Common normals: Normal to inspection, nondistended, normoactive bowel sounds present, soft to palpation and non-tender Extremity Common normals: normal to inspection, full ROM, normal capillary refill and no joint enlargement Results Labs Labs: Short CBC 08/05/24 Range/Units 09:54 WBC 14.0 H (4.0-11.0) 10^3/uL Hgb 15.1 (14.0-18.0) g/dL Hct 42.5 (42.0-54.0) % Plt Count 122 L (150-450) 10^3/uL BMP 08/05/24 09:54 Sodium 137 Potassium 3.3 L Chloride 99 Carbon Dioxide 28.5 BUN 14.0 Creatinine 1.04 Glucose 147 H Calcium 8.7 Liver Function 08/05/24 Range/Units 09:54 Total Bilirubin 0.8 (0.2-1.0) mg/dL AST 62 H (15-37) U/L ALT 112 H (16-63) U/L Alkaline Phosphatase 72 (46-116) U/L Albumin 3.4 (3.4-5.0) g/dL Assessment and Plan Assessment and Plan (1) Salmonella bacteremia: (2) Dehydration: (3) Acute hypokalemia: (4) Diarrhea: Plan Admission findings: Mild hypotension, leukocytosis with left shift consistent with a bacterial process with thrombocytopenia and lactic acidosis, elevated liver function test secondary to Salmonella bacteremia and resulting in severe sepsis, patient with good urine output so did hold off on aggressive fluid resuscitation Severe sepsis secondary to Salmonella bacteremia-IV antibiotics, IV fluids, received small bolus in ER, good urine output so far Hypokalemia-supplement Elevated liver function test-review in a.m. Elevated CRP review in a.m. Thrombocytopenia likely secondary to the severe sepsis as outlined above,-repeat in a.m. Admission status: Patient initially placed in observation, other than the labs as outlined above being abnormal overall he feels fairly well, greater than a 50% chance he will be discharged home tomorrow so medically necessary treatment will span 1 midnight so observational status, if patient not improved tomorrow and requires prolonged IV antibiotic therapy, he will be changed to inpatient status
--- OUTSIDE RECORDS SUMMARY | 2024-08-05 11:26 | XMS_ITS | CCD ---
Author Organization [facility] Care Team Providers Care Director Of Sales Marketing Name Role Phone REBEL CAZARES Attending Unavailable [...] [penicillin] Drug Allergy Eruption of skin (disorder) [facility] [place] Medications Current Medications Medication Drug Class(es) Dates Sig (Normalized) Sig (Original) pantoprazole 40 mg delayed release oral tablet (2 sources) Proton Pump Inhibitor Start: 04-20-2024 End: 06-15-2024 take 1 tablet by mouth twice daily Protonix 40 mg Tab-DR 40 mg = 1 tab(s), Oral, BID, X 14 day(s), # 28 tab(s), Refills(s) 3, Pharmacy: [facility]/pharmacy #[id number], 167.6, cm, 03/28/24 14:21:00 EST, Height/Length [...] (Exhl gas) Negative Invalid Interpretation Code Negative [facility] Comment on above: Result Comment: Performed at: [employer] [facility] [address] [id number] PhD Nilsa Kerr Performed By: #### 1 [id number] #### [facility] [address] [place] [address] Ambulatory Visit Summaryon 0 05-02-2024 Ambulatory Visit [...] Follow-Up Appointments Tuesday 8:00 AM EDT Where: [facility] [address] [place] [address] [address] [place] [address]- Medications What How Much When Why Instructions [...] choosing us for your care. Merle Chou [facility] General Surgery Office/Clini c Noteon [...] E&M of Est. Patient Low 20-29 Min 04241 Helicobacter pylori; breath test analysis for urease activity, non-radioactive isotope (eg, C-13) 8 2. Globus sensation (R09.A2: Foreign body sensation, throat) improving Ordered: E&M of Est. Patient Low 20-29 Min 62282 Helicobacter pylori; breath test analysis for urease activity, non-radioactive isotope (eg, C-13) 8 3. Helicobacter positive gastritis (K29.70: Gastritis, unspecified, without bleeding) see # 1 Ordered: E&M of Est. Patient Low 20-29 Min 36895 Helicobacter pylori; breath test analysis for urease [...] vax 06/18/2020 Recorded 2024-03-19: TPVAL [facility] Comment on above: Result Comment: Electronically Signed [...] you for choosing us for your care. [facility] XR CHEST 2 VIEWSon XR CHEST [...] 03-28-2024 14:18-0500 Blood Pressure Location Trell NILL [facility] 03-28-2024 14:18-0500 Diastolic blood pressure 82 mm[Hg] Trell NILL [facility] 03-28-2024 14:18-0500 Heart rate 72 /min Trell NILL [facility] 03-28-2024 14:18-0500 Respiratory rate 16 /min Trell NILL [facility] 03-28-2024 14:18-0500 Systolic blood pressure 112 mm[Hg] Trell NILL [facility] Encounters Encounter Date Encounter Type Care Provider Facility Start: 06-18-2024 End: 06-18-2024 Lab Drop off Trell R NILL [facility] Start: 06-18-2024 End: 06-18-2024 ambulatory Trell R NILL Facility:[facility] Start: 05-02-2024 End: 05-02-2024 ambulatory Trell R NILL Facility:[facility] Start: 05-02-2024 End: 05-02-2024 Patient encounter procedure Trell R NILL [facility] Start: 04-18-2024 End: 04-18-2024 ambulatory Trell R NILL Facility:CD:[id number] Start: 03-28-2024 End: 03-28-2024 ambulatory Trell R NILL Facility:[facility] Start: 03-28-2024 End: 03-28-2024 Patient encounter procedure Trell JARQUIN [facility] Start: 03-19-2024 ambulatory Trell JARQUIN Facility:[facility] Start: 05-15-2023 End: 05-16-2023 ambulatory REBEL CAZARES Not Available Procedures Date Procedure Procedure Detail Performing Clinician Start: 04-18-2024 Esophagogastroduodenoscopy Trell DUVALL None (qualifier value) Mauricio JARQUIN Immunizations Immunization Date Immunization Notes Care Provider Fa cility 03-20-2021 SARS-CoV-2 (COVID-19 ) mRNA BNT-162b2 vax Trell NILL [facility] 07-09-2020 SARS-CoV-2 (COVID-19 ) mRNA BNT-162b2 vax Trell DUVALL [facility] Comment on above: Result Comment: 2024: TPVAL 06-18-2020 SARS-CoV-2 (COVID-19 ) mRNA BNT-162b2 vax Trell DUVALL [facility] Comment on above: Result Comment: 2024: TPVAL Payers Date Payer Category Payer Unknown [id number] 2024 Unknown [id number] 2023 Unknown [id number] 1988 Unknown [id number] 2.16.84 [id number] 1988 Unknown [id number] 2.16.84 [id number] 1988 Unknown [id number] 2.16.8 [id number] 1988 Unknown [id number] 2.16.8 [id number] 1988 Unknown [id number] 2.16.8 [id number] 1988 Unknown [id number] 2.16.8 [id number] 1988 Unknown [id number] 2.16.8 [id number] Social History Date Type Detail Facility Start: 03-28-2024 End: 05-02-2024 Tobacco smoking status Never smoked tobacco (finding) [facility] [place] Tobacco smoking status Never [facility] Sex Assigned At Male [facility] Sexual Orientation [facility] Start: 06-18-2009 Sex Male (finding) [facility] Functional Status Date Assessment Result Facility 05-02-2024 Functional Status N/A [facility] [place] 03-28-2024 Functional Status N/A [facility] [place] Evaluation + Plan note 06-18-2024 Note Date & Type Note Facility 06-18-2024 Evaluation + Plan note Diagnostic Tests PendingH. pylori Breath Test 06/18/24 [facility] Clinical Note 06-18-2024 Note Date & Type [...] BNT-162b2 vax 06/18/2020 Recorded 2024-03-19: ALVA Chou [facility] Clinical Note 03-28-2024 Note Date [...] vax 06/18/2020 Recorded 2024-03-19: TPVAL [facility] Comment on above: Result Comment: Elec tronically Signed By: MILKA NASH, Trell Epperson\Date and Time Signed: 03/28/24 14:54 EST Evaluation + Plan note Note Date & Type Note Facility Evaluation + Plan note No data available for this section [facility] [place] Evaluation + Plan note Note Date & Type Note Facility Evaluation + Plan note Future Appointments Appointment Date:06/18/2024 08:00:00 AM Scheduled Provider: Location:[facility] Appointment Type:[facility] Nurse Visit [facility] [place] [facility] Discharge instructions Note Date & Type Note Facility Hospital Discharge instructions No data available for this section [facility] [place] Progress note Note Date & Type Note Facility Progress note No data available for this section [facility] [place] Summary Purpose Family History No Family History [...] and content) DATE CREATED AUTHOR 05/20/2023 [facility] DATE CREATED AUTHOR AUTHOR'S ORGANIZ ATION 06/20/2024 [facility] DATE CREATED AUTHOR AUTHOR'S ORGANIZ ATION 06/27/2024 [facility] Patient Care team informatio n (unrecognized section and content) Personnel Name: Shaun Lopez MD Address: Address: [address] [place], [place] [address], [place] [address] Personnel Name: John NASHShaun Address: Address: [address] [place] [address] [place] [id number] Personnel Name: John NASHShaun Address: [address] [place] [address] [place], [place] [address] [employer]: FOR RECORDS PERTAINING TO PATIENTS WHO [...] BE BASED ON THE PRIMARY CLINICAL RECORDS. [employer] [facility]. provides no warranty or guarantee of the accuracy or completeness of information in this document.
[2024-08-05] MEDS: LACTATED RINGER'S SOLUTION 1,000 ML 125 ML IV ×2 (12:42→20:44)
[2024-08-05 13:41] LABS: Lactate/Lactic Acid 1.8 mmol/L (0.4-2.0)
--- NOTE | 2024-08-05 17:13 | PC.NURSE ---
dr renteria notified of elevated temperature and heart rate. orders received
[2024-08-05] MEDS: ACETAMINOPHEN 500 MG TABLET 1000 MG PO ×2 (17:20→23:24)
[2024-08-05] MEDS: DICLOFENAC SODIUM 25 MG TABLET.DR 75 MG PO (21:19)
[2024-08-06] VITALS (10 sets, daily range): BP systolic 99–135; BP diastolic 66–86; PULSE 64–86; TEMP 36.4–39.5; O2SAT 91–96
[2024-08-06] MEDS: LACTATED RINGER'S SOLUTION 1,000 ML 125 ML IV ×2 (05:13→13:37)
[2024-08-06 05:27] LABS: Basophils Percent Auto 0.2 % (0.2-2.0); Hematocrit 35.6 % (42.0-54.0); Hemoglobin 11.8 g/dL (14.0-18.0); Immature Granulocytes Abs Auto 0.08 10^3/uL (0.00-0.03); Immature Granulocytes Pct Auto 0.7 % (0.0-0.5); Lymphocytes Absolute Auto 1.4 10^3/uL (1.2-3.8); Lymphocytes Percent Auto 11.7 % (20.5-60.0); Mean Corpuscular HGB Conc 33.1 g/dL (29.9-35.2); Mean Corpuscular Hemoglobin 27.8 pg (25.9-34.0); Monocytes Absolute Auto 1.2 10^3/uL (0.3-0.8); Monocytes Percent Auto 9.9 % (1.7-12.0); Neutrophils Absolute Auto 9.4 10^3/uL (1.4-6.5); Neutrophils Percent Auto 77.5 % (43.0-75.0); Platelet Count 127 10^3/uL (150-450); Red Blood Count 4.24 10^6/uL (4.70-6.10); White Blood Count 12.2 10^3/uL (4.0-11.0)
[2024-08-06 05:50] LABS: Alanine Aminotransferase 70 U/L (16-63); Albumin Globulin Ratio 0.7; Albumin Level 2.5 g/dL (3.4-5.0); Alkaline Phosphatase 48 U/L (46-116); Anion Gap 11.3; Aspartate Amino Transferase 33 U/L (15-37); BUN Creatinine Ratio 9.6; Bilirubin Total 0.5 mg/dL (0.2-1.0); Calcium 8.2 mg/dL (8.5-10.1); Chloride 107 mmol/L (98-107); Estimated GFR (African America >60 (>=60 mL/min/1.73m^2); Estimated GFR (Non-African Ame >60 (>=60 mL/min/1.73m^2); Globulin 3.5 g/dL; Glucose 112 mg/dL (74-106); Potassium 3.3 mmol/L (3.5-5.1); Sodium 143 mmol/L (136-145)
--- NOTE | 2024-08-06 06:49 | P.DS_ITS ---
DS: Providers Provider Date of admission: 08/05/24 11:16 Primary care physician: Shaun Lopez MD DS: Diagnosis Discharge Diagnosis (1) Salmonella bacteremia: (2) Dehydration: (3) Acute hypokalemia: (4) Diarrhea: Plan Admission findings: Mild hypotension, leukocytosis with left shift consistent with a bacterial process with thrombocytopenia and lactic acidosis, elevated liver function test secondary to Salmonella bacteremia and resulting in severe sepsis, patient with good urine output so did hold off on aggressive fluid resuscitation Severe sepsis secondary to Salmonella bacteremia-still with fever but overall improved with improved white blood cell count Hypokalemia-supplement Elevated liver function test-stable Elevated CRP review in a.m. Thrombocytopenia likely secondary to the severe sepsis as outlined above,-repeat in a.m. Admission status: Patient initially placed in observation, other than the labs as outlined above being abnormal overall he feels fairly well, greater than a 50% chance he will be discharged home tomorrow so medically necessary treatment will span 1 midnight so observational status, if patient not improved tomorrow and requires prolonged IV antibiotic therapy, he will be changed to inpatient status ? DS: Summary Hospital Course Hospital Course: Patient returned from a trip from [facility] about 3 weeks ago had some diarrhea initially that resolved started feeling worse just from a generalized fatigue standpoint presented to the emergency room blood cultures were obtained and given fluids and sent home, the rapid portion of the culture did come back positive for Salmonella, patient was asked to come back in for IV antibiotics, he was admitted overnight given 3 doses of IV Cipro, still having fevers but overall feels improved, lab results are improving on the Cipro with white blood cell count back down to normal, he did have lactic acidosis on admission and elevated liver function test consistent with sepsis, severe, but he is improved today so will be discharged home in improving condition. Medication status. Follow-up with me in the office later this week. Time Spent with Patient Time attestation: Total time spent providing and/or coordinating discharge services: Exam Constitutional Vital Signs, click to edit/add: Last Vital Signs Temp 97.6 F 08/06/24 04:13 Pulse 67 08/06/24 04:13 Resp 16 08/06/24 04:13 BP 99/69 08/06/24 04:13 Pulse Ox 95 08/06/24 04:13 O2 Del Method Room Air 08/06/24 04:13 Documenting provider has reviewed patient's vital signs: yes Common normals: no apparent distress Chest Common normals: inspection of chest normal Respiratory Common normals: normal respiratory effort, no retractions and clear to auscultation bilaterally Cardio Common normals: regular rate, regular rhythm, S1 normal heart sound and S2 normal heart sound GI Common normals: Normal to inspection, nondistended, normoactive bowel sounds present, soft to palpation, non-tender, no hepatosplenomegaly and no masses Extremity Common normals: normal to inspection, full ROM, normal capillary refill and no joint enlargement DS: Data Data Completed and Pending Labs on day of discharge: Labs from last 24 hours 08/06/24 08/05/24 08/05/24 05:10 13:10 09:54 WBC 12.2 H 14.0 H RBC 4.24 L 5.19 Hgb 11.8 L 15.1 Hct 35.6 L 42.5 MCV 84.0 81.9 MCH 27.8 29.1 MCHC 33.1 35.5 H RDW 13.0 12.7 Plt Count 127 L 122 L MPV 12.0 11.6 Neut % (Auto) 77.5 H 88.4 H Lymph % (Auto) 11.7 L 6.0 L [place] % (Auto) 9.9 4.7 Eos % (Auto) 0.0 L 0.0 L Baso % (Auto) 0.2 0.2 Neut # (Auto) 9.4 H 12.3 H Lymph # (Auto) 1.4 0.8 L [place] # (Auto) 1.2 H 0.7 Eos # (Auto) 0.0 0.0 Baso # (Auto) 0.0 0.0 Abs Immat Gran (auto) 0.08 H 0.10 H Imm/Tot Granulo (auto) 0.7 H 0.7 H Sodium 143 137 Potassium 3.3 L 3.3 L Chloride 107 99 Carbon Dioxide 28.0 28.5 Anion Gap 11.3 12.8 BUN 9.0 14.0 Creatinine 0.94 1.04 Est GFR ( Amer) >60 >60 Est GFR (Non-Af Amer) >60 >60 BUN/Creatinine Ratio 9.6 13.5 Glucose 112 H 147 H Lactate 1.8 2.2 H* Calcium 8.2 L 8.7 Total Bilirubin 0.5 0.8 AST 33 62 H ALT 70 H 112 H Alkaline Phosphatase 48 72 C-Reactive Protein 11.10 H Total Protein 6.0 L 7.9 Albumin 2.5 L 3.4 Globulin 3.5 4.5 Albumin/Globulin Ratio 0.7 0.8 Discharge Plan Discharge Disposition: Home Health Service Discharge Medications: New ciprofloxacin HCl [Cipro] 500 mg tablet 500 mg PO Q12H Qty: 28 0RF Continued ondansetron 4 mg tablet,disintegrating 4 mg PO Q6H PRN (Reason: nausea and vomiting) Qty: 12 0RF diclofenac sodium 75 mg tablet,delayed release (DR/EC) 75 mg PO Q12H pantoprazole 40 mg tablet,delayed release (DR/EC) 40 mg PO DAILY Discontinued metronidazole 500 mg tablet 500 mg PO Q12H 7 Days Qty: 14 0RF Print Language: Ivorian Forms: Portal Instructions Follow Up Appointments: August 14 @ 10:30am with Dr. Lopez [phone]
--- NOTE | 2024-08-06 09:00 | CM.NOTE ---
Rounds made with Dr. Lopez, pt will discharge today on P.O antibiotics. Pt up ambulatory in room, no discharge needs identified.
[2024-08-06] MEDS: ACETAMINOPHEN 500 MG TABLET 1000 MG PO (09:07)
[2024-08-06] MEDS: POTASSIUM CHLORIDE 10 MEQ ER TABLET 20 MEQ PO (09:08)
[2024-08-06] MEDS: PANTOPRAZOLE SODIUM 40 MG TABLET.DR PO (09:08)
[2024-08-06] MEDS: CIPROFLOXACIN IN 5 % DEXTROSE 400 MG/200 ML PREMIX 200 MG IV (09:08)
[2024-08-06] MEDS: DICLOFENAC SODIUM 25 MG TABLET.DR 75 MG PO (09:09)
--- NOTE | 2024-08-08 10:57 | CM.DCFOLLOWU ---
Person spoke with:patient How are you feeling?well How is your pain?none Did you understand your discharge instructions?yes Do you have any questions about your discharge instructions?no Were you given any prescriptions at discharge?yes Were you able to get your prescriptions filled?yes Do you understand how to take your medications as ordered?yes Do you have any questions about your follow up appointment and do you plan to keep your follow up appointment? no questions, follow up today Is there anything else that you would like to discuss?no Questions/Comments/Concerns/Other:no
== END 2024-08-06 17:06 | disposition home or self-care (01) ==
LOC: ER 10:39 → MS 11:24
PROVIDERS: Admitting Provider Family Medicine; Emergency Provider Emergency Medicine; Family Provider Family Medicine; PCP Family Medicine; Visit Provider Family Medicine
DX: A02.1 Salmonella sepsis (principal); E86.0 Dehydration; R19.7 Diarrhea, unspecified; E87.6 Hypokalemia; D69.6 Thrombocytopenia, unspecified; E87.20 Acidosis, unspecified; R79.89 Other specified abnormal findings of blood chemistry; R79.82 Elevated C-reactive protein (CRP); R65.20 Severe sepsis without septic shock; R50.9 Fever, unspecified
CPT/HCPCS: 36415; 80053; 83605; 85025; 86140; 87040; 96361; 96365; 96366; 99285; G0328; G0378; J0744